=== PATIENT | female | born 1955 | race Caucasian/White ===

== ENCOUNTER 2021-12-11 05:41 | Inpatient (IN) | payer MEDICARE ==
[~2021-12-11] VITALS: Ht 160 cm; Wt 64.0 kg
[2021-12-11] VITALS (13 sets, daily range): BP systolic 80–115; BP diastolic 28–67
--- NOTE | 2021-12-11 05:55 | NUR ---
BIB 39 PT C/O SOB SATTING 85% ON R/A. TACHY 144, 95% ON NRB, SKIN WARM TO TOUCH. PT BREATHING UNLABORED LUNGS CLEAR BILATERALLY PLACED ON RAM PRESS OPERATOR AND PULSE OX. MD WAS AT BEDSIDE FOR EVAL.
--- NOTE | 2021-12-11 06:20 | NUR ---
DIGITAL TECHNICIAN AT PT'S BEDSIDE
--- NOTE | 2021-12-11 06:28 | NUR ---
WEAVER HAND AT PT'S BEDSIDE
[2021-12-11 06:38] LABS: BASOPHILS # (AUTO) 0.1 K/uL (0.0-0.2); BASOPHILS % (AUTO) 0.5 % (0.0-2.0); EOSINOPHILS % (AUTO) 0.1 % (0.0-6.0); HEMATOCRIT 32 % (33-45); HEMOGLOBIN 10.5 g/dL (11.5-14.8); LYMPHOCYTES # (AUTO) 0.9 K/uL (0.8-4.8); LYMPHOCYTES % (AUTO) 3.3 % (20.0-44.0); MEAN CORPUSCULAR HGB CONC 32 g/dl (31.0-36.0); MEAN CORPUSCULAR VOLUME 85 fL (82-100); MONOCYTES # (AUTO) 0.8 K/uL (0.1-1.30); NEUTROPHILS # (AUTO) 24.3 K/uL (1.8-8.9); NEUTROPHILS % (AUTO) 93.1 % (43.0-81.0); PLATELET COUNT (AUTO) 559 K/uL (150-450); WHITE BLOOD COUNT (AUTO) 26.1 K/uL (4.3-11.0)
[2021-12-11 07:06] LABS: CALCIUM, SERUM 10.5 mg/dL (8.5-10.1); CARBON DIOXIDE 28 mmol/L (21-32); CHLORIDE 97 mmol/L (98-107); CREATININE 0.7 mg/dL (0.6-1.3); GLUCOSE 128 mg/dL (74-106); SODIUM SERUM 130 mmol/L (136-145); UREA NITROGEN, BLOOD 8 mg/dL (7-18)
[2021-12-11] MEDS ORDERED: CT SWABBABLE VALVE TRANS SET 1 EA INFUS.SET MC ONE (07:39)
[2021-12-11] MEDS ORDERED: IOHEXOL-350 100 ML VIAL IV ONE (07:39)
[2021-12-11] MEDS ORDERED: IV NS 0.9% 250 ML IV ONE (07:39)
[2021-12-11] MEDS ORDERED: PIPERACILLIN /TAZOBACTAM 3.375 G in IV D5W 50 ML IV ONE (08:00)
[2021-12-11] MEDS ORDERED: VANCOMYCIN HCL 1 GM in IV D5W 260 ML IV ONE (08:00)
[2021-12-11] MEDS ORDERED: DOCU-141 PO (08:11)
[2021-12-11] MEDS ORDERED: CRAN3875 PO (08:11)
[2021-12-11] MEDS ORDERED: ACET-868 PO (08:11)
[2021-12-11] MEDS ORDERED: TORS20TA3 PO (08:11)
[2021-12-11] MEDS ORDERED: CITA20TA19 PO (08:11)
[2021-12-11] MEDS ORDERED: LOSA50TA39 PO (08:11)
[2021-12-11] MEDS ORDERED: ONDA4TAB5 PO (08:11)
[2021-12-11] MEDS ORDERED: POTA20TA83 PO (08:11)
[2021-12-11] MEDS ORDERED: AMIN30LI2 PO (08:11)
[2021-12-11] MEDS ORDERED: MULT-447 PO (08:11)
[2021-12-11] MEDS ORDERED: ACET650S11 RC (08:11)
[2021-12-11] MEDS ORDERED: ACET-2605 PO (08:11)
[2021-12-11] MEDS ORDERED: BISA10SU11 RC (08:11)
[2021-12-11] MEDS ORDERED: PANT40TA49 PO (08:11)
--- NOTE | 2021-12-11 08:35 | NUR ---
CALLED LAB FOR PENDING TROP AND LACTIC ACID RESULT.
--- NOTE | 2021-12-11 08:36 | NUR ---
COVID TEST COLLECTED AND SENT
--- NOTE | 2021-12-11 08:52 | NUR ---
URINE COLLECTED AND SENT
--- NOTE | 2021-12-11 08:53 | NUR ---
RESPIRATORY AT BEDSIDE
--- NOTE | 2021-12-11 09:08 | NUR ---
MOVE SHEET SUBMITTED AND CALLED FOR ICU BED.
--- NOTE | 2021-12-11 09:15 | NUR ---
[facility] CALLED BARKER OPERATOR PAGED.
[2021-12-11 09:27] LABS: BILIRUBIN,URINE NEGATIVE (NEGATIVE); COLOR,URINE YELLOW (YELLOW); LEUKOCYTE ESTERASE ,URINE NEGATIVE (NEGATIVE); NITRITE, URINE NEGATIVE (NEGATIVE); PH,URINE 6.5 (5.0-8.0); PROTEIN,URINE NEGATIVE (NEGATIVE); UGLUCOSE NEGATIVE (NEGATIVE)
[2021-12-11 09:43] LABS: BACTERIA,URINE None seen /HPF (None Seen); SQUAMOUS EPITHELIAL CELL,UR None Seen /HPF (None Seen)
[2021-12-11] MEDS ORDERED: ACETAMINOPHEN 325 MG TABLET PO PRN (10:00)
[2021-12-11] MEDS ORDERED: MAG HYDROX/AL HYDROX/SIMETH 30 ML UDC PO PRN (10:00)
[2021-12-11] MEDS ORDERED: Z GUARD REMEDY 4 OZ OINT TP PRN (10:00)
[2021-12-11] MEDS ORDERED: ONDANSETRON HCL/PF 4 MG/2 ML VIAL IVP PRN (10:00)
[2021-12-11] MEDS ORDERED: MAGNESIUM HYDROXIDE 30 ML UDC PO PRN (10:00)
--- NOTE | 2021-12-11 10:13 | NUR ---
GOT BED 254
--- NOTE | 2021-12-11 10:24 | NUR ---
IV ESTABLISHED R AC 20G. CONVERTED TO SALINE LOCK.
[2021-12-11] MEDS ORDERED: BISACODYL SUPP (10 MG) 10 MG/SUPP.RECT SUPP.RECT RC PRN (10:30)
--- NOTE | 2021-12-11 10:31 | NUR ---
REPORT GIVEN TO DERRICK FOR JENNIFER
--- NOTE | 2021-12-11 11:02 | NUR ---
PT ARRIVED IN ROOM 254 FROM ER VIA [facility], ACCOMPANIED BY DOM ORTEGA. PT IS ALERT OX2, COOPERATIVE. PT CURRENTLY ON NRB MASK AT 15L.
[2021-12-11] MEDS: IV NS 0.9% 1,000 ML IV PRN (12:23)
[2021-12-11] MEDS: ENOXAPARIN SODIUM 40 MG/0.4 ML DISP.SYRIN SQ SCH (12:54)
[2021-12-11] MEDS ORDERED: ZOSYN IVPB 3.375 G in IV D5W 50ml IV SCH (13:00)
[2021-12-11] MEDS: DOCUSATE SODIUM 100 MG CAPSULE PO SCH (16:18)
--- NOTE | 2021-12-11 19:20 | NUR ---
GYM TEACHER NOTE RECEIVED PATIENT IN BED RESTING ALERT ORIENTED X1-2 VERBALLY RESPONSIVE ON 5L OXYGEN VIA NASAL CANNULA O2:97% IV SITE IS ON LEFT AC AND RIGHT AC INTACT PATENT ON IV HYDRATION NS 75CC/HR.SAFETY MEASURE IMPLEMENT BED IN LOW POSITION AND LOCKED,CALL LIGHT WITHIN REACH HEAD OF THE BED ELEVATED CONTINUE TO MONITOR.
--- NOTE | 2021-12-11 19:30 | NUR ---
PT HAS BEEN SLEEPING ON AND OFF SINCE ADMISSION. PT WAS PUT ON 5L NASAL CANNULA AT 1600, SATTING >94%. NO SIGNIFICANT EVENTS SINCE ADMISSION. PT CHECKED ON HOURLY AND PRN BY NURSING STAFF.
[2021-12-11] MEDS: VANCOMYCIN HCL 0.75 GM in IV D5W 250 ML IV SCH (19:39)
[2021-12-11] MEDS: PIPERACILLIN /TAZOBACTAM 3.375 G in IV D5W 100 ML IV SCH (21:17)
[2021-12-12] VITALS (25 sets, daily range): BP systolic 81–124; BP diastolic 46–77
[2021-12-12] MEDS: IV NS 0.9% 1,000 ML IV PRN ×2 (02:01→17:53)
[2021-12-12] MEDS: PIPERACILLIN /TAZOBACTAM 3.375 G in IV D5W 100 ML IV SCH ×3 (04:50→22:18)
[2021-12-12 05:51] LABS: ALANINE AMINOTRANSFERASE < 6 U/L (12-78); ALKALINE PHOSPHATASE 55 U/L (46-116); ASPARTATE AMINOTRANSFERASE 2 U/L (15-37); BILIRUBIN,DIRECT 0.1 mg/dL (0.0-0.2); BILIRUBIN,TOTAL 0.4 mg/dL (0.2-1.0); CALCIUM, SERUM 6.1 mg/dL (8.5-10.1); CARBON DIOXIDE 17 mmol/L (21-32); CHLORIDE 114 mmol/L (98-107); CREATININE 0.4 mg/dL (0.6-1.3); GLUCOSE 62 mg/dL (74-106); MAGNESIUM 1.3 mg/dL (1.8-2.4); SODIUM SERUM 140 mmol/L (136-145); TOTAL IRON BINDING CAPACITY 60 ug/dl (250-450); TOTAL PROTEIN, SERUM 3.3 g/dL (6.4-8.2); UREA NITROGEN, BLOOD 6 mg/dL (7-18)
--- NOTE | 2021-12-12 06:00 | NUR ---
RN NOTE RECEIVED CRITICAL LAB RESULTS POTASSIUM 2.1 NOTIFIED GRADE TEACHER MARK ANTHONY WITH NEW ORDER KCL 40MEQ NOTED AND CARRIED OUT.
[2021-12-12 06:07] LABS: FERRITIN 358 ng/mL (8-388); THYROID STIMULATING HORMONE 1.976 uIU/mL (0.358-3.74)
[2021-12-12 06:09] LABS: ALBUMIN 0.9 g/dL (3.4-5.0); POTASSIUM 2.1 mmol/L (3.5-5.1)
[2021-12-12 06:30] LABS: IRON, SERUM 4 ug/dl (50-175)
[2021-12-12] MEDS: POTASSIUM CHLORIDE 10 MEQ/50 ML PREMIXED IVPB FOR PERIPHERAL LINE IV SCH ×4 (06:40→11:51)
--- NOTE | 2021-12-12 07:42 | NUR ---
RN NOTE PATIENT REMAINS ON ALERT ORIENTED X1-2 VERBALLY RESPONSIVE ON 5L OXYGEN VIA NASAL CANNULA,O2:97% IV NS RUNNING 75 CC/HR ALL DUE MEDS GIVEN MD ORDERED KEPT CLEAN AND DRY ALL THE TIME ENDORSES NEXT COMING SHIFT FOR CONTINUATION OF CARE.
--- NOTE | 2021-12-12 07:50 | NUR ---
RN OPENING NOTE RECEIVED PATIENT IN BED RESTING ALERT ORIENTED X1-2 VERBALLY RESPONSIVE ON 5L OXYGEN VIA NASAL CANNULA IV SITE IS ON LEFT AC AND RIGHT AC INTACT PATENT ON IV HYDRATION NS 75CC/HR. PATINT DOES NOT COMPLAINT OF PAIN OR SOB AT THIS TIME. SAFETY MEASURE IMPLEMENT BED IN LOW POSITION AND LOCKED,CALL LIGHT WITHIN REACH HEAD OF THE BED ELEVATED.
[2021-12-12] MEDS: VANCOMYCIN HCL 0.75 GM in IV D5W 250 ML IV SCH ×2 (08:35→21:18)
[2021-12-12] MEDS: DOCUSATE SODIUM 100 MG CAPSULE PO SCH ×2 (08:37→17:00)
[2021-12-12] MEDS: CITALOPRAM HYDROBROMIDE 20 MG TABLET PO SCH (08:37)
--- NOTE | 2021-12-12 08:49 | NUR ---
RN NOTE RECIEVED CRITICAL HGB 4.1. LAST DRAW WAS 10.5 ON . PATIENT HAS NO ACTIVE BLEEDING ORDERED RE DRAW.
[2021-12-12] MEDS ORDERED: Magnesium 1 GM/2 ML VIAL IV ONE (09:30)
[2021-12-12 09:51] LABS: BASOPHILS % (AUTO) 0.1 % (0.0-2.0); EOSINOPHILS % (AUTO) 0.1 % (0.0-6.0); HEMATOCRIT 26 % (33-45); HEMOGLOBIN 8.5 g/dL (11.5-14.8); LYMPHOCYTES # (AUTO) 1.8 K/uL (0.8-4.8); LYMPHOCYTES % (AUTO) 6.5 % (20.0-44.0); MEAN CORPUSCULAR HGB CONC 32 g/dl (31.0-36.0); MEAN CORPUSCULAR VOLUME 86 fL (82-100); MONOCYTES # (AUTO) 0.7 K/uL (0.1-1.30); MONOCYTES % (AUTO) 2.6 % (2.0-12.0); NEUTROPHILS # (AUTO) 25.2 K/uL (1.8-8.9); NEUTROPHILS % (AUTO) 90.7 % (43.0-81.0); PLATELET COUNT (AUTO) 442 K/uL (150-450); RED BLOOD CELL COUNT(AUTO) 3.06 MIL/uL (4.0-5.2); WHITE BLOOD COUNT (AUTO) 27.8 K/uL (4.3-11.0)
[2021-12-12] MEDS ORDERED: Calcium Gluconate 1GM/10ML 4.65 MEQ in IV D5W 50 ML IV ONE (10:00)
[2021-12-12] MEDS ORDERED: IOHEXOL-300 100 ML VIAL IV ONE (11:19)
[2021-12-12] MEDS ORDERED: CT SWABBABLE VALVE TRANS SET 1 EA INFUS.SET MC ONE (11:19)
[2021-12-12] MEDS ORDERED: IV NS 0.9% 250 ML IV ONE (11:19)
[2021-12-12] MEDS: Magnesium 1GM/D5W 100ML PREMIX 100 ML IV SCH ×4 (11:45→15:56)
[2021-12-12] MEDS ORDERED: POTASSIUM CHLORIDE 10 MEQ/50 ML PREMIXED IVPB FOR PERIPHERAL LINE IV SCH (12:00)
[2021-12-12] MEDS: ENOXAPARIN SODIUM 40 MG/0.4 ML DISP.SYRIN SQ SCH (12:00)
--- NOTE | 2021-12-12 12:04 | NUR ---
RN NOTE 5 BAGS OF POTASSIUM HAVE BEEN INFUSED 1200. NO REACTION.
[2021-12-12] MEDS: SOD FERRIC GLUC 125 MG in IV NS 0.9% 100 ML IV SCH (15:28)
[2021-12-12] MEDS ORDERED: Magnesium 1GM/D5W 100ML PREMIX 100 ML IV SCH (16:00)
--- NOTE | 2021-12-12 19:10 | NUR ---
RN CLOSING NOTE RECEIVED PATIENT IN BED RESTING ALERT ORIENTED X1-2 VERBALLY RESPONSIVE ON 3L OXYGEN VIA NASAL CANNULA IV SITE IS ON LEFT AC AND RIGHT AC INTACT PATENT ON IV HYDRATION NS 75CC/HR. PATINT DOES NOT COMPLAINT OF PAIN OR SOB AT THIS TIME. SAFETY MEASURE IMPLEMENT BED IN LOW POSITION AND LOCKED,CALL LIGHT WITHIN REACH HEAD OF THE BED ELEVATED. WILL ENDORSE TO NIGHT NURSE FOR JENNIFER
--- NOTE | 2021-12-12 19:35 | NUR ---
RN NOTE PT RECEIVED IN BED. PT IS ON 3L OF O2 VIA NC SHOWING NO S/SX OF RESP DISTRESS. BREATHING EVEN AND UNLABORED. PT IS A/OX1-2. ON BEDSIDE/FAN BALANCER SHOWING NSR. PT CURRENTLY NPO. IV ACCESS NOTED ON LEFT AND RIGHT AC #20. LINES FLUSHED, PATENT, AND INTACT. ALL SAFETY MEASURES IMPLEMENTED. HOB ELEVATED. CALL LIGHT WITHIN REACH. BED LOCKED AND IN LOWEST POSITION. SIDE RAILS UP. WILL CONTINUE TO MONITOR AND ASSESS FOR ANY CHANGES DURING SHIFT.
[2021-12-12 23:14] LABS: CALCIUM, SERUM 9.6 mg/dL (8.5-10.1); CREATININE 0.6 mg/dL (0.6-1.3); POTASSIUM 3.9 mmol/L (3.5-5.1)
[2021-12-13] VITALS (23 sets, daily range): BP systolic 100–132; BP diastolic 52–93
[2021-12-13 05:24] LABS: BASOPHILS % (AUTO) 0.1 % (0.0-2.0); HEMATOCRIT 26 % (33-45); HEMOGLOBIN 8.6 g/dL (11.5-14.8); LYMPHOCYTES # (AUTO) 1.2 K/uL (0.8-4.8); LYMPHOCYTES % (AUTO) 5.4 % (20.0-44.0); MEAN CORPUSCULAR HGB CONC 33 g/dl (31.0-36.0); MEAN CORPUSCULAR VOLUME 85 fL (82-100); MONOCYTES # (AUTO) 0.6 K/uL (0.1-1.30); MONOCYTES % (AUTO) 2.8 % (2.0-12.0); NEUTROPHILS # (AUTO) 20.8 K/uL (1.8-8.9); NEUTROPHILS % (AUTO) 91.7 % (43.0-81.0); PLATELET COUNT (AUTO) 423 K/uL (150-450); RED BLOOD CELL COUNT(AUTO) 3.07 MIL/uL (4.0-5.2); WHITE BLOOD COUNT (AUTO) 22.7 K/uL (4.3-11.0)
[2021-12-13] MEDS: PIPERACILLIN /TAZOBACTAM 3.375 G in IV D5W 100 ML IV SCH ×3 (05:35→21:15)
--- NOTE | 2021-12-13 06:45 | NUR ---
RN NOTE NO CHANGES IN PT CONDITION DURING SHIFT. PT IS ON 3L OF O2 VIA NC SHOWING NO S/SX OF RESP DISTRESS. BREATHING EVEN AND UNLABORED. ON BEDSIDE/MACHINE ROOM ENGINEER SHOWING NSR. PT CURRENTLY NPO. 0.9% RUNNING AT 75 CC/HR. ALL SAFETY MEASURES IMPLEMENTED. PT KEPT CLEAN AND COMFORTABLE. ALL DUE MEDS GIVEN ORDERED. HOB ELEVATED. CALL LIGHT WITHIN REACH. BED LOCKED AND IN LOWEST POSITION. SIDE RAILS UP. WILL ENDORSE TO MORNING SHIFT RN FOR JENNIFER.
[2021-12-13 07:07] LABS: IMMUNOGLOBULIN A, SERUM 338 mg/dL (87-352); IMMUNOGLOBULIN G, SERUM 929 mg/dL (586-1602); IMMUNOGLOBULIN M, SERUM 84 mg/dL (26-217)
--- NOTE | 2021-12-13 07:47 | NUR ---
RN OPENING NOTE RECEIVED PATIENT IN BED RESTING ALERT ORIENTED X1-2 VERBALLY RESPONSIVE ON 3L OXYGEN VIA NASAL CANNULA. BREATHING EVEN AND UNLABORED. NO SOB OR ANY ACUTE DISTRESS NOTED AT THE TIME. IV ACCESS ON LEFT AC AND RIGHT AC INTACT PATENT INFUSING NS AT 75CC/HR. NO SIGNS ON INFILTRATION NOTED. PATIENT DOES NOT COMPLAINT OF PAIN OR ANY DISCOMFORT AT THE TIME. SAFETY MEASURE IMPLEMENT BED IN LOW POSITION AND LOCKED,CALL LIGHT WITHIN REACH HEAD OF THE BED ELEVATED. WILL CONTINUE TO MONITOR PATIENT THROUGHOUT SHIFT.
[2021-12-13 07:52] LABS: CALCIUM, SERUM 9.3 mg/dL (8.5-10.1); CREATININE 0.5 mg/dL (0.6-1.3); POTASSIUM 3.3 mmol/L (3.5-5.1)
[2021-12-13] MEDS: IV NS 0.9% 1,000 ML IV PRN (08:08)
[2021-12-13] MEDS: CITALOPRAM HYDROBROMIDE 20 MG TABLET PO SCH (08:47)
[2021-12-13] MEDS: DOCUSATE SODIUM 100 MG CAPSULE PO SCH ×2 (08:47→17:00)
[2021-12-13] MEDS: POTASSIUM CL. PREMIX PERIPHER. 50 ML IV SCH ×2 (09:34→12:02)
--- NOTE | 2021-12-13 09:43 | NUR ---
RN NOTE SPOKE TO STANLEY BARRERA. PER STANLEY THE CASE IS STILL UNDER INVESTIGATION/PENDING AND SHE IS NOT ABLE TO GIVE CONSENT FOR PEG TUBE AND EGD.
--- NOTE | 2021-12-13 09:55 | NUR ---
RN NOTE PATIENT REFUSED TO SIGN CONSENT FOR PEG TUBE PLACEMENT, EXPLAINED RISKS VS BENEFITS. PATIENT STATES "PLS GIVE ME TIME TO THINK ABOUT IT."
[2021-12-13] MEDS ORDERED: VANCOMYCIN HCL 0.75 GM in IV D5W 250 ML IV SCH (10:00)
--- NOTE | 2021-12-13 10:45 | NUR ---
RN NOTE NOTED LEAKING ON LEFT AC IV ACCESS. MED VANCO SWITCH TO INFUSE ON IV ACCESS ON RIGHT AC INFUSING AT 250 ML/HR. VANCOMYCIN ONLY MED INFUSING CURRENTLY ON THE IV SITE. IV ACCESS PATENT AND INTACT. NO SIGNS OF INFILTRATION NOTED.
[2021-12-13] MEDS: ENOXAPARIN SODIUM 40 MG/0.4 ML DISP.SYRIN SQ SCH (11:14)
--- NOTE | 2021-12-13 12:29 | NUR ---
RN NOTE PATIENT AGREED AND SIGNED CONSENT FOR EGD, PEG PLACEMENT AND ANESTHESIA.
[2021-12-13 13:06] LABS: *SPE A/G RATIO 0.5 (0.7-1.7); *SPE ALPHA-1-GLOBULIN 0.4 g/dL (0.0-0.4); *SPE ALPHA-2-GLOBULIN 0.6 g/dL (0.4-1.0); *SPE BETA GLOBULIN 0.6 g/dL (0.7-1.3); *SPE M-SPIKE Not Observed g/dL (Not Observed)
[2021-12-13] MEDS: SOD FERRIC GLUC 125 MG in IV NS 0.9% 100 ML IV SCH (13:52)
--- NOTE | 2021-12-13 18:50 | NUR ---
RN CLOSING NOTE NO SIGNIFICANT CHANGES IN PATIENT CONDITION THROUGHOUT SHIFT. PATIENT IS ON 3LPM OF O2 VIA NC SHOWING NO SIGNS OF SOB OR ANY ACUTE DISTRESS NOTED. BREATHING EVEN AND UNLABORED. PATIENT REMAINS ON NPO. IV ACCESS ON JOEY MIDLINE INFUSING 0.9% NS AT 75 CC/HR. ALL DUE MEDS GIVEN ORDERED. KEPT PATIENT CLEAN, DRY AND COMFORTABLE. HOB ELEVATED. ALL SAFETY MEASURES IMPLEMENTED. CALL LIGHT WITHIN REACH. BED LOCKED AND IN LOWEST POSITION. SIDE RAILS UP. PATIENT SCHEDULE FOR PEG PLACEMENT TONIGHT. PRE-OP CHECKLIST COMPLETED AND PUT IN CHART. WILL ENDORSE TO WOOD DRILL OPERATOR RN FOR CONTINUITY OF CARE.
[2021-12-13] MEDS ORDERED: ANESTHESIA TRAY IN PYXIS 1 EA TRAY MC ONE (19:00)
[2021-12-13] MEDS ORDERED: FAMOTIDINE/PF INJ 20 MG/2 ML VIAL IV ONE (19:05)
--- NOTE | 2021-12-13 19:05 | NUR ---
DRILL OPERATOR PNEUMATIC BY OR STAFF NURSE FOR PEG PLACEMENT PT IS A/O X2 AWAKE ABLE TO TALK, ON 3L O2 VIA NC SPO2 96-97% NO SOB NOTED, TELE MONITOR READS SINUS TACHY 100'S HAVE JOEY ML PATENT AND FLUSHED, ON ROUTE TO OR
--- NOTE | 2021-12-13 19:33 | NUR ---
PT WAS SEND BACK TO UNIT BY OR NURSES, PEG PLACEMENT WAS NOT DONE PLEASE REFER TO OR NOTES, PT IS AWAKE ORIENTED NO SIGN OF SOB ON 3L O2 VIA NC
--- NOTE | 2021-12-13 19:40 | NUR ---
PT TRANSFER TO ROOM 308-1 VIA ACLS PROTOCOL, PT IS ALERT ORIENTED ABLE TO VERBALIZED NEEDS, TELE MONITOR READS SINUS TACHY 100'S, NO SOB NOTED, WITH ONGOING NS @ 75ML/HR INFUSING VIA JOEY ML, REPORT GIVEN TO MS ROYAL ORTEGA ON BEDSIDE FOR JENNIFER, BELONGINGS ALSO ENDORSE,
--- NOTE | 2021-12-13 20:00 | NUR ---
FOAM MACHINE OPERATOR NOTES PT RECEIVED IN BED A/0 X1-2 WITH PERIODS OF CONFUSION ABLE TO MAKE NEEDS KNOW. NO PAIN NO DISCOMFORT NOTED AT THIS TIME. PT ON 3L OF O2 SATURATION WELL. PT NOTED WITH IV ACCESS ON THE LAC#20 AND RAC #20G. AND JEOY ML. ORIENTED TO UNIT AND ROOM CALL LIGHT WITHIN REACH. TABLE WITHIN REACH. WILL CONTINUE TO MONITOR.
[2021-12-13] MEDS: VANCOMYCIN 1 GM in IV D5W 250 ML IV SCH (22:14)
[2021-12-14] VITALS (8 sets, daily range): BP systolic 119–147; BP diastolic 71–94
[2021-12-14] MEDS: PIPERACILLIN /TAZOBACTAM 3.375 G in IV D5W 100 ML IV SCH ×3 (04:25→21:23)
--- NOTE | 2021-12-14 06:36 | NUR ---
EXTENSION ASSOCIATE CLOSING NOTES PT IN BED WATCHING TV A/0 X1-2 WITH PERIODS OF CONFUSION ABLE TO MAKE NEEDS KNOW. NO PAIN NO DISCOMFORT NOTED AT THIS TIME. PT ON 3L OF O2 SATURATION WELL. PT NOTED WITH IV ACCESS ON THE LAC#20 .AND JOEY ML. PT BED ALARM ON BILATERAL SIDE RAILS UP FOR SAFETY. CALL LIGHT WITHIN REACH. TABLE WITHIN REACH. PT REMAINS NPO AT THIS TIME TO HAVE SWALLOW EVAL.
[2021-12-14 06:55] LABS: CREATININE 0.6 mg/dL (0.6-1.3); POTASSIUM 3.8 mmol/L (3.5-5.1)
[2021-12-14 07:12] LABS: BASOPHILS % (AUTO) 0.1 % (0.0-2.0); HEMATOCRIT 28 % (33-45); HEMOGLOBIN 9.1 g/dL (11.5-14.8); LYMPHOCYTES # (AUTO) 1.5 K/uL (0.8-4.8); LYMPHOCYTES % (AUTO) 5.1 % (20.0-44.0); MEAN CORPUSCULAR HGB CONC 32 g/dl (31.0-36.0); MEAN CORPUSCULAR VOLUME 87 fL (82-100); MONOCYTES % (AUTO) 3.4 % (2.0-12.0); NEUTROPHILS # (AUTO) 26.5 K/uL (1.8-8.9); NEUTROPHILS % (AUTO) 91.4 % (43.0-81.0); PLATELET COUNT (AUTO) 457 K/uL (150-450); RED BLOOD CELL COUNT(AUTO) 3.25 MIL/uL (4.0-5.2)
--- NOTE | 2021-12-14 07:30 | NUR ---
KNIFE MACHINE OPERATOR NOTES PT IN BED, AWAKE, ALERT, WITH PERIODS OF CONFUSION, ABLE TO FOLLOW DIRECTIONS, NO COMPLAINT OF PAIN, NOT IN DISTRESS, CALL LIGHT WITHIN REACH, BED ALARM ON AT ALL TIMES PT TRIES TO GET OOB UNASSISTED, KEPT WARM AND COMFORTABLE IN BED, IV FLUIDS INFUSING WELL.
[2021-12-14] MEDS ORDERED: VANCOMYCIN HCL 0.75 GM in IV D5W 250 ML IV SCH (08:00)
[2021-12-14] MEDS: DOCUSATE SODIUM 100 MG CAPSULE PO SCH ×2 (09:00→16:17)
[2021-12-14] MEDS: CITALOPRAM HYDROBROMIDE 20 MG TABLET PO SCH (09:00)
[2021-12-14] MEDS: VANCOMYCIN 1 GM in IV D5W 250 ML IV SCH ×2 (10:20→22:01)
[2021-12-14] MEDS: ENOXAPARIN SODIUM 40 MG/0.4 ML DISP.SYRIN SQ SCH (10:21)
[2021-12-14] MEDS ORDERED: SUCCINYLCHOLINE CHLORIDE 20 MG/ML VIAL IV ONE (13:40)
[2021-12-14] MEDS ORDERED: PROPOFOL 200 MG/20 ML VIAL IV ONE (13:40)
[2021-12-14] MEDS ORDERED: ONDANSETRON HCL/PF 4 MG/2 ML VIAL IVP ONE (13:40)
--- NOTE | 2021-12-14 13:40 | NUR ---
LAST SCOURER NOTES ATTEMPTED NGT INSERTION, UNABLE TO INSERT DUE TO PT UNABLE TO TOLERATE, DR. ARVIZU INFORMED, ORDER RECEIVED FOR PICC LINE PLACEMENT.
[2021-12-14] MEDS: SOD FERRIC GLUC 125 MG in IV NS 0.9% 100 ML IV SCH (14:30)
--- NOTE | 2021-12-14 18:15 | NUR ---
RESPIRATORY TECH NOTES PT IN BED, AWAKE, ALERT AND VERBALLY RESPONSIVE, WITH PERIODS OF CONFUSION AND BEING FORGETFUL, KEPT NPO, PICC LINE PLACEMENT DONE, STAT XRAY SHOWED "Right-sided PICC line terminates in the projection of the SVC - atrial junction", PER DR. ARVIZU, LINE SHOULD BE PULLED BACK FROM THE ATRIUM AND SHOULD END IN THE SVC, PICTURE OF THE CHEST XRAY SENT TO DR. ARVIZU AND SAID THAT PICC LINE IS OK TO USE, ORDER ALSO OBTAINED TO START PT ON TPN, ORDER NOTED. PT IN BED, RESTING, NO SIGN OF PAIN OR DISTRESS, ALL NEEDS ATTENDED, BED ALARM ON AT ALL TIMES.
[2021-12-14] MEDS ORDERED: TPN/PPN PER PHARMACY IV PRN (18:30)
[2021-12-14] MEDS ORDERED: TPN BAG #1 IV SCH (19:00)
--- NOTE | 2021-12-14 19:30 | NUR ---
BOARDINGHOUSE KEEPER OPENING NOTES RECEIVED PATIENT ON BED; AWAKE, ALERT AND ORIENTED X 1-2 WITH PERIODS OF CONFUSION. BREATHING IS EVEN AND UNLABORED. IN NO ACUTE DISTRESS. WITH OXYGEN INHALATION VIA NC AT 3LPM. ON TELEMETRY MONITORING WITH SR HR 98 BPM. WITH PICC LINE AT JOEY; DRY AND INTACT. WITH IV ACCESS OF NS 1L @ 75ML/HR AT RIGHT AC G2O. ABLE TO MAKE NEEDS KNOWN. SAFETY MEASURES IMPLEMENTED. CALL LIGHT AND TABLE WITHIN REACH. SIDE RAILS UP X 2. BED IS IN LOWEST LOCKED POSITION. WILL CONTINUE TO MONITOR.
--- NOTE | 2021-12-14 20:08 | NUR ---
PRODUCTION SAMPLER NOTES BS CHECKED 79 ML/DL. TPN CLINIMIX 1000 ML STARTED VIA INFUSION PUMP SET TO 40 ML/HR ORDERED.
[2021-12-14 20:17] LABS: HEMATOCRIT 26 % (33-45); HEMOGLOBIN 8.6 g/dL (11.5-14.8); LYMPHOCYTES # (AUTO) 1.7 K/uL (0.8-4.8); LYMPHOCYTES % (AUTO) 6.9 % (20.0-44.0); MEAN CORPUSCULAR HGB CONC 33 g/dl (31.0-36.0); MEAN CORPUSCULAR VOLUME 86 fL (82-100); MONOCYTES # (AUTO) 1.1 K/uL (0.1-1.30); MONOCYTES % (AUTO) 4.4 % (2.0-12.0); NEUTROPHILS # (AUTO) 21.4 K/uL (1.8-8.9); NEUTROPHILS % (AUTO) 88.7 % (43.0-81.0); PLATELET COUNT (AUTO) 455 K/uL (150-450); RED BLOOD CELL COUNT(AUTO) 3.06 MIL/uL (4.0-5.2); WHITE BLOOD COUNT (AUTO) 24.1 K/uL (4.3-11.0)
[2021-12-14 22:13] LABS: ALBUMIN 1.5 g/dL (3.4-5.0)
[2021-12-14 22:17] LABS: PREALBUMIN 3.8 MG/DL (18.0-35.7)
[2021-12-15] VITALS: BP 138/91
--- NOTE | 2021-12-15 00:15 | NUR ---
NET LEAD ARCHITECT NOTES BLOOD SUGAR CHECKED WITH RESULT OF 103 MG/DL. NO INSULIN COVERAGE GIVEN.
[2021-12-15] MEDS: BLOOD SUGAR DIAGNOSTIC 1 EACH STRIP IN SCH ×4 (01:18→17:40)
[2021-12-15 04:00] VITALS: BP 150/92
[2021-12-15] MEDS: PIPERACILLIN /TAZOBACTAM 3.375 G in IV D5W 100 ML IV SCH ×3 (04:44→20:45)
--- NOTE | 2021-12-15 06:30 | NUR ---
EXPELLER OPERATOR CLOSING NOTES PATIENT IS IN BED WATCHING TV, ALERT AND ORIENTED X 1-2 WITH PERIODS OF CONFUSION. IN NO ACUTE DISTRESS. DENIES ANY PAIN AT THIS TIME. WITH OXYGEN INHALATION VIA NASAL CANNULA. WITH PICC LINE AT JOEY WITH TPN INFUSING AT 40 ML/HR. WITH IV ACCESS AT RAC G20 OF NS AT 75 ML/HR. ABLE TO MAKE NEEDS KNOWN. SAFETY MEASURES MAINTAINED. CALL LIGHT AND TABLE WITHIN REACH. SIDE RAILS UP X 2. BED IS IN LOWEST LOCKED POSITION. WILL ENDORSED TO MORNING SHIFT FOR CONTINUITY OF CARE
[2021-12-15 06:39] LABS: HEMATOCRIT 26 % (33-45); HEMOGLOBIN 8.5 g/dL (11.5-14.8); LYMPHOCYTES # (AUTO) 1.4 K/uL (0.8-4.8); LYMPHOCYTES % (AUTO) 5.1 % (20.0-44.0); MEAN CORPUSCULAR HGB CONC 33 g/dl (31.0-36.0); MEAN CORPUSCULAR VOLUME 85 fL (82-100); MONOCYTES # (AUTO) 1.2 K/uL (0.1-1.30); MONOCYTES % (AUTO) 4.3 % (2.0-12.0); NEUTROPHILS # (AUTO) 24.5 K/uL (1.8-8.9); NEUTROPHILS % (AUTO) 90.6 % (43.0-81.0); PLATELET COUNT (AUTO) 451 K/uL (150-450); RED BLOOD CELL COUNT(AUTO) 3.04 MIL/uL (4.0-5.2)
[2021-12-15 06:52] LABS: CALCIUM, SERUM 10.8 mg/dL (8.5-10.1); CREATININE 0.7 mg/dL (0.6-1.3); PHOSPHORUS 2.8 mg/dL (2.5-4.9)
[2021-12-15 07:25] LABS: POTASSIUM 2.6 mmol/L (3.5-5.1)
--- NOTE | 2021-12-15 07:25 | NUR ---
RN NOTE Received critical value from Shawna from lab, potassium is 2.6. Dr. Coley notified.
[2021-12-15 07:34] LABS: CHOLESTEROL 67 mg/dL (<200); HDL CHOLESTEROL 27 mg/dL (40-60); LDL 30 mg/dL (0-99); TRIGLYCERIDES 52 mg/dL (30-150)
--- NOTE | 2021-12-15 07:40 | NUR ---
FARMWORKER MACHINE OPENING NOTE Patient in bed, asleep. A/O x 1-2. On O2 at 3LPM via NC, breathing evenly and unlabored. No SOB or s/s of distress noted. IV access on JOEY PICC line infusing TPN at 40 ml/hr and RAC#20G to infuse NS at 75 ml/hr, currently running Zosyn at 25 ml/hr. Safety precautions in place: bed in low, locked position; siderails up x 2; call light within reach. Will continue to monitor.
[2021-12-15 08:00] VITALS: BP 142/77
[2021-12-15] MEDS: DOCUSATE SODIUM 100 MG CAPSULE PO SCH ×2 (09:00→17:00)
[2021-12-15] MEDS: CITALOPRAM HYDROBROMIDE 20 MG TABLET PO SCH (09:00)
[2021-12-15] MEDS: POTASSIUM CL. PREMIX PERIPHER. 50 ML IV SCH ×4 (09:30→12:28)
[2021-12-15] MEDS: VANCOMYCIN 1 GM in IV D5W 250 ML IV SCH ×2 (10:02→22:17)
[2021-12-15] MEDS ORDERED: POTASSIUM CL. PREMIX PERIPHER. 50 ML IV SCH (11:00)
[2021-12-15] MEDS: ENOXAPARIN SODIUM 40 MG/0.4 ML DISP.SYRIN SQ SCH (11:38)
[2021-12-15 12:00] VITALS: BP 153/89
[2021-12-15] MEDS ORDERED: PAMIDRONATE 90 MG in IV NS 0.9% 500 ML IV ONE (13:00)
[2021-12-15] MEDS: SOD FERRIC GLUC 125 MG in IV NS 0.9% 100 ML IV SCH (14:53)
[2021-12-15 16:00] VITALS: BP 154/91
[2021-12-15] MEDS ORDERED: TPN BAG #2 IV SCH ×4 (19:00)
--- NOTE | 2021-12-15 19:12 | NUR ---
COAT AGENTCORPORATE EVENT PLANNER NOTE Patient in bed, asleep. A/O x 1-2, able to make needs known. On O2 at 3LPM via NC, breathing evenly and unlabored. No SOB or s/s of distress noted. IV access on JOEY PICC line infusing TPN at 40 ml/hr and RAC#20G currently running Zosyn at 25 ml/hr and Pamidronate at 100 ml/hr. All needs attended to. Due IV meds given. Om tele monitoring showing SR, HR 94. Safety precautions maintained: bed in low, locked position; siderails up x 2; call light within reach. Will endorse to maintenance technician 3rd shift nurse for JENNIFER. Addendum: 12/15/21 at 1914 by MYKE HOPKINS RN CORRECTION: COAT AGENT CLOSING NOTE
--- NOTE | 2021-12-15 19:25 | NUR ---
SPEECH AND LANGUAGE TUTOR OPENING NOTES RECEIVED PATIENT ON BED AWAKE, ALERT AND ORIENTED X 1-2. WITH PERIODS OF CONFUSION. ON OXYGEN INHALATION VIA NASAL CANNULA AT 3LPM, WELL TOLERATED. BREATHING IS EVEN AND NONLABORED. ABLE TO MAKE NEEDS KNOWN. DENIES ANY PAIN OF THIS TIME. WITH PICC LINE AT RIGHT UPPER ARM INFUSING WELL WITH TPN RUNNING AT 40ML/HR. WITH IV ACCESS AT RIGHT ANTECUBITAL G20 INFUSING WELL WITH NS 1L RUNNING AT 75ML/HR. SAFETY MEASURES IMPLEMENTED; CALL LIGHT WITHIN REACH; SIDE RAILS UP X 2, BED IS ON LOWEST LOCKED POSITION. WILL CONTINUE TO MONITOR.
--- NOTE | 2021-12-15 19:41 | NUR ---
STRANDING MACHINE OPERATOR HELPER NOTES STARTED TPN CLINIMIX WITH ADDITIVES 1L VIA INFUSION PUMP ATTACHED TO PICC LINE RIGHT UPPER ARM REGULATED AT 40 ML/HR ORDERED.
[2021-12-15 20:00] VITALS: BP 153/96
[2021-12-16] VITALS: BP 145/87
[2021-12-16] MEDS: BLOOD SUGAR DIAGNOSTIC 1 EACH STRIP IN SCH ×5 (00:21→23:53)
[2021-12-16 04:00] VITALS: BP 145/93
[2021-12-16] MEDS: PIPERACILLIN /TAZOBACTAM 3.375 G in IV D5W 100 ML IV SCH ×3 (05:06→23:11)
[2021-12-16 06:42] LABS: EOSINOPHILS % (AUTO) 0.1 % (0.0-6.0); HEMATOCRIT 27 % (33-45); HEMOGLOBIN 8.6 g/dL (11.5-14.8); LYMPHOCYTES # (AUTO) 1.7 K/uL (0.8-4.8); LYMPHOCYTES % (AUTO) 6.9 % (20.0-44.0); MEAN CORPUSCULAR HGB CONC 32 g/dl (31.0-36.0); MEAN CORPUSCULAR VOLUME 87 fL (82-100); MONOCYTES # (AUTO) 1.1 K/uL (0.1-1.30); MONOCYTES % (AUTO) 4.4 % (2.0-12.0); NEUTROPHILS # (AUTO) 21.3 K/uL (1.8-8.9); NEUTROPHILS % (AUTO) 88.6 % (43.0-81.0); PLATELET COUNT (AUTO) 410 K/uL (150-450); RED BLOOD CELL COUNT(AUTO) 3.08 MIL/uL (4.0-5.2); WHITE BLOOD COUNT (AUTO) 24.1 K/uL (4.3-11.0)
[2021-12-16 06:54] LABS: CALCIUM, SERUM 11.3 mg/dL (8.5-10.1); CREATININE 0.7 mg/dL (0.6-1.3); PHOSPHORUS 2.4 mg/dL (2.5-4.9)
[2021-12-16 07:01] LABS: POTASSIUM 2.7 mmol/L (3.5-5.1)
--- NOTE | 2021-12-16 07:28 | NUR ---
CAR REPAIRER CLOSING NOTES PATIENT IS IN BED ALERT AND ORIENTED X 1-2 WITH PERIODS OF CONFUSION. IN NO ACUTE DISTRESS. WITH OXYGEN INHALATION VIA NASAL CANNULA. WITH PICC LINE AT JOEY WITH TPN INFUSING AT 40 ML/HR. WITH IV ACCESS AT RAC G20 OF NS AT 75 ML/HR. ABLE TO MAKE NEEDS KNOWN. SAFETY MEASURES MAINTAINED. CALL LIGHT AND TABLE WITHIN REACH. SIDE RAILS UP X 2. BED IS IN LOWEST LOCKED POSITION. WILL ENDORSED TO MORNING SHIFT FOR CONTINUITY OF CARE
--- NOTE | 2021-12-16 07:50 | NUR ---
MASTER MACHINIST NOTES PT IN BED, AWAKE, ALERT AND VERBALLY RESPONSIVE, STATED SHE IS FEELING BETTER TODAY, TPN INFUSING WELL, NOT IN DISTRESS, ON O2 AT 3LPM VIA N/C, O2 SAT OF96%, SEEN BY DR. LUH MD INFORMED OF CURRENT POTASSIUM LEVEL OF 2.7, KEPT PT COMFORTABLE.
[2021-12-16 08:37] VITALS: BP 135/75
[2021-12-16] MEDS: DOCUSATE SODIUM 100 MG CAPSULE PO SCH ×2 (08:43→16:48)
[2021-12-16] MEDS: CITALOPRAM HYDROBROMIDE 20 MG TABLET PO SCH (08:43)
--- NOTE | 2021-12-16 09:12 | NUR ---
SPORTS MEDIA NOTES SEEN BY DR. TEENA MD AWARE OF LATEST CXR RESULT, ORDERED TO GIVE POTASSIUM IV 60MEQ AND TO RECHECK POTASSIUM LEVEL 1 HOUR AFTER THE LAST BAG, PER MD, HOLD IV FLUIDS FOR NOW.
[2021-12-16] MEDS: POTASSIUM CL. PREMIX PERIPHER. 50 ML IV SCH ×6 (09:25→23:21)
[2021-12-16] MEDS: VANCOMYCIN 1 GM in IV D5W 250 ML IV SCH ×2 (10:26→22:01)
[2021-12-16] MEDS: ENOXAPARIN SODIUM 40 MG/0.4 ML DISP.SYRIN SQ SCH (11:28)
[2021-12-16] MEDS ORDERED: FUROSEMIDE 40 MG/4 ML VIAL IV ONE (11:30)
[2021-12-16] MEDS ORDERED: FAT EMULSION 20% 500 ML in PREMIX 1 EA IV SCH (12:00)
[2021-12-16 12:42] VITALS: BP 159/106
[2021-12-16] MEDS ORDERED: ALTEPLASE CATHFLO 2 MG/VIAL XX ONE (13:30)
--- NOTE | 2021-12-16 15:55 | NUR ---
HR ANALYST NOTES ACTIVASE GIVEN BY COURT COMMISSIONER DELIA TO 2 WHITE LUMENS OF PICC FOR DECLOTTING, WILL WAIT 30 MIN TO CHECK FOR BLOOD RETURN, PHARMACY MADE AWARE THAT TPN IS ON HOLD FOR NOW WHILE PICC LINE IS BEING DECLOTTED.
[2021-12-16 16:00] VITALS: BP 119/77
--- NOTE | 2021-12-16 16:25 | NUR ---
HEREDITARY CANCER PROGRAM COORDINATOR NOTES CHECKED PICC LINE FOR BLOOD RETURN, NO BLOOD RETURN NOTED, WILL WAIT FOR AN ADDITIONAL 1 HOUR.
[2021-12-16] MEDS: SOD FERRIC GLUC 125 MG in IV NS 0.9% 100 ML IV SCH (16:33)
--- NOTE | 2021-12-16 17:25 | NUR ---
TONGUE PRESSER NOTES CHECKED PICC LINE FOR BLOOD RETURN, STILL NONE NOTED, INFORMED NURSING SHAKE MAKER FOR PICC LINE NURSE TO CHECK OR CHANGE PICC LINE, TPN ON HOLD FOR NOW, DR. ARVIZU INFORMED.
[2021-12-16] MEDS: POTASSIUM PHOSPHATE MM 7.5 MMOL in IV NS 0.9% 100 ML IV SCH ×2 (17:45→22:26)
[2021-12-16] MEDS ORDERED: TPN BAG #3 IV SCH ×2 (19:00)
--- NOTE | 2021-12-16 19:10 | NUR ---
LABOR RELATIONS DIRECTOR NOTES PT IN BED, AWAKE, VERBALLY RESPONSIVE, NOT IN DISTRESS, PICC LINE NURSE RYLIE FRAUD ANALYST AT BEDSIDE TO CHANGE PICC LINE, TPN CURRENTLY ON HOLD UNTIL PICC LINE IS FUNCTIONAL, F/C DRAINING WELL WITH CLEAR, YELLOW URINE, ORDERS RECEIVED FOR EGD WITH PEG PLACEMENT/ SURGICAL PLACEMENT OF GT FOR TOMORROW, PT UNABLE TO GIVE CONSENT AT THIS TIME DUE TO EPISODES OF CONFUSION, 2 MD'S NEED TO SIGN CONSENTS, DR. ARVIZU INFORMED, ENDORSED TO MANUFACTURING APPLICATIONS ENGINEER JORDAN PAIGE FOR CONTINUITY OF MONITORING AND CARE.
--- NOTE | 2021-12-16 19:36 | NUR ---
OCCUPATIONAL THERAPY SUPERVISOR NOTES PT IN BED, AWAKE, ALERT AND VERBALLY RESPONSIVE, PT CURRENTLY HAVING PICC LINE REINSERTED AT BEDSIDE. NOT IN DISTRESS, ON O2 AT 3LPM VIA N/C, O2 SAT OF96%. WILL CONTINUE TO MONITOR.
--- NOTE | 2021-12-16 20:35 | NUR ---
RESIN COATER NOTES PICC LINE INSERTED ON THE LEFT AC. WILL ORDER CX TO CONFIRM PLACEMENT.. PT TOLERATED PROCEDURE WELL. WILL CONTINUE TO MONITOR.
--- NOTE | 2021-12-16 23:37 | NUR ---
BOWLING BALL MOLDER NOTES FABIOLA DRAWN AT 10:30 PM
[2021-12-17 00:34] VITALS: BP 114/74
[2021-12-17] MEDS: POTASSIUM CL. PREMIX PERIPHER. 50 ML IV SCH ×2 (01:30→03:00)
[2021-12-17] MEDS: PIPERACILLIN /TAZOBACTAM 3.375 G in IV D5W 100 ML IV SCH (05:02)
[2021-12-17 05:09] VITALS: BP 105/70
[2021-12-17] MEDS: BLOOD SUGAR DIAGNOSTIC 1 EACH STRIP IN SCH ×3 (05:47→17:07)
[2021-12-17 06:47] LABS: HEMATOCRIT 31 % (33-45); HEMOGLOBIN 9.7 g/dL (11.5-14.8); LYMPHOCYTES % (AUTO) 4.2 % (20.0-44.0); MEAN CORPUSCULAR HGB CONC 31 g/dl (31.0-36.0); MEAN CORPUSCULAR VOLUME 87 fL (82-100); MONOCYTES # (AUTO) 1.8 K/uL (0.1-1.30); MONOCYTES % (AUTO) 3.8 % (2.0-12.0); NEUTROPHILS # (AUTO) 44.4 K/uL (1.8-8.9); PLATELET COUNT (AUTO) 362 K/uL (150-450); RED BLOOD CELL COUNT(AUTO) 3.54 MIL/uL (4.0-5.2)
--- NOTE | 2021-12-17 06:49 | NUR ---
FOOD GENERAL MANAGER NOTES PT IN BED, AWAKE, VERBALLY RESPONSIVE, NOT IN DISTRESS,A/O X1-2 WITH EPISODES OF CONFUSION F/C DRAINING WELL WITH CLEAR, YELLOW URINE, ORDERS RECEIVED FOR EGD WITH PEG PLACEMENT/ SURGICAL PLACEMENT OF GT FOR TODAY, PT UNABLE TO GIVE CONSENT AT THIS TIME DUE TO EPISODES OF CONFUSION. ALL DUE MEDS GIVEN AND TOLERATED WELL. PT WITH DELANEY PICC, LFA 22G, R HAND 20G ALL PATENT AND FLUSHING WELL. WILL ENDORSE CRAE TO [place]AMP[place]A SHIFT NURSE.
[2021-12-17 07:02] LABS: CALCIUM, SERUM 11.1 mg/dL (8.5-10.1); MAGNESIUM 1.6 mg/dL (1.8-2.4); PHOSPHORUS 4.6 mg/dL (2.5-4.9)
[2021-12-17 07:18] LABS: WHITE BLOOD COUNT (AUTO) 48.3 K/uL (4.3-11.0)
--- NOTE | 2021-12-17 07:19 | NUR ---
BUSINESS BANKING MANAGER NOTES RECEIVED CRITICAL LAB FOR WBC WILL ENDORSE TO SHANTELLE DAY SHIFT NURSE.
[2021-12-17] MEDS ORDERED: SUCCINYLCHOLINE CHLORIDE 20 MG/ML VIAL ONE (07:56)
[2021-12-17] MEDS ORDERED: FAMOTIDINE/PF INJ 20 MG/2 ML VIAL IV ONE (07:56)
[2021-12-17 08:00] VITALS: BP 138/70
--- NOTE | 2021-12-17 08:00 | NUR ---
RN OPENING NOTE PATIENT RECEIVED IN BED, AO x 1, ABLE TO RESPONDS PHYSICAL STIMULI. IN NO ACUTE DISTRESS NOTED. RESPIRATORY EVEN AND UNLABORED ON OXYGEN AT 4Ls. SKIN IS WARM TO TOUCH, KEEP CLEAN/DRY, INTACT IV SITE. KEPT ELEVATED HOB FOR ENSURE AIRWAY AND ASPIRATION PRECAUTION, ALSO LOWEST POSITION OF THE BED, COVERED S/R UP X 3 FOR SAFETY. ALL SAFETY PRECAUTION APPLIED. CALL LIGHT WITHIN REACH, WILL CONTINUE TO MONITOR.
[2021-12-17 08:13] LABS: BAND % (MANUAL) 2 % (0.0-5.0); LYMPHOCYTES % (MANUAL) 6 % (16-48); MONOCYTES % (MANUAL) 4 % (0-11.0); NEUTROPHILS % (MANUAL) 88 (42-76)
[2021-12-17] MEDS ORDERED: ANESTHESIA TRAY IN PYXIS 1 EA TRAY MC ONE (08:17)
[2021-12-17 08:31] LABS: CREATININE 1.3 mg/dL (0.6-1.3); POTASSIUM 3.7 mmol/L (3.5-5.1)
[2021-12-17] MEDS: CITALOPRAM HYDROBROMIDE 20 MG TABLET PO SCH (09:00)
[2021-12-17] MEDS: DOCUSATE SODIUM 100 MG CAPSULE PO SCH ×2 (09:00→16:31)
[2021-12-17] MEDS: VANCOMYCIN 1 GM in IV D5W 250 ML IV SCH (09:32)
--- NOTE | 2021-12-17 09:32 | NUR ---
PATIENT VANCO LEVEL WAS 31 IN THIS MORNING, WILL HOLD VANCOMYCIN.
[2021-12-17 09:51] LABS: ABG BASE EXCESS -0.5 mmol/L; ABG OXYGEN SATURATION 95.6 % (92.0-98.5); ABG PCO2 31.6 mmHg (35.0-45.0); ABG PH 7.471 (7.350-7.450); ABG PO2 80.4 mmHg (75.0-100.0); AaDO2 139.6 mmHg; COHb 0.2 % (0.5-1.5); MetHb 0.1 % (0.0-1.5); O2Hb 95.3 % (94.0-97.0); SITE, ABG Right Brachial
[2021-12-17] MEDS: Magnesium 1GM/D5W 100ML PREMIX 100 ML IV SCH ×2 (10:49→11:58)
[2021-12-17] MEDS ORDERED: TPN BAG #4 IV SCH ×4 (11:40)
[2021-12-17] MEDS: ENOXAPARIN SODIUM 40 MG/0.4 ML DISP.SYRIN SQ SCH (11:59)
[2021-12-17] MEDS ORDERED: VANCOMYCIN 1 GM in IV D5W 250 ML IV PRN (13:00)
[2021-12-17] MEDS: MEROPENEM 1 G in IV NS 0.9% 100 ML IV SCH (13:01)
[2021-12-17] MEDS: FLUCONAZOLE IN NS 100 MG in PREMIX 1 EA IV SCH ×2 (13:02)
[2021-12-17 16:00] VITALS: BP 123/60
--- NOTE | 2021-12-17 18:45 | NUR ---
RN CLOSE NOTE PATIENT IN BED, IN NO ACUTE DISTRESS OBSERVED. RESPIRATION EVEN AND UNLABORED ON OXYGEN AT 4Ls. SKIN IS WARM TO TOUCH KEEP CLEAN//DRY, INTACT IV SITE. RIVAS CATH CONNECTING TO URINE BAG. KEPT ELEVATED HOB FOR ENSURE AIRWAY AND ASPIRATION PRECAUTION. ALSO LOWEST POSITION OF THE BED FOR SAFETY. CALL LIGHT WITHIN REACH, WILL CONTINUE TO MONITOR.
--- NOTE | 2021-12-17 19:30 | NUR ---
MANAGER OF SOFTWARE NOTES RECEIVED ON BED A/O X1,OPEN EYES,CALM, BREATHING NON LABORED,AUDIBLE CRACKLES NOTED,CONGESTED,HOB ELEVATED,MAIN IVF WAS TURN OFF, ON TPN WITH MVI,INFUSING AT 60ML/HR RATE ON LEFT UPPER ARM PICC LINE,IVF NS AT 50ML/HR RATE INFUSING ON RIGHT HAND SALINE LOCK #22, VIA IV PIMP.WITH RIVAS CATH IN PLACE DRAINING SLIGHTLY CLOUDY URINE OUTPUT, SCANTY IN AMOUNT.NOT IN ANY FORM OF DISTRESS.WILL CONTINUE TO MONITOR STATUS.
[2021-12-17 20:00] VITALS: BP 124/87
--- NOTE | 2021-12-17 22:00 | NUR ---
DRESSAGE INSTRUCTOR NOTES NOTED CHANGED IN PATIENT BREATHING STATUS,ICU NURSE WAS CALLED TO EVALUATE PATIENT,MADE AWARE OF DIAGNOSIS,PATIENT HISTORY,PROCEDURES THAT WAS DONE AND NEEDS TO BE DONE.WITH ORDER TO DO ABG, EKG,ST ON TELE MONITOR 108.RT MADE AWARE THAT PATIENT HAS ESOPHAGEAL CANCER,THAT HE WANTS TO SUCTION PATIENT NASALLY. SUCTIONING DONE WITHOUT DIFFICULTY AND RT SAID HE GOT A LOT OF MUCUS,CRACKLES WAS IMPROVED. OPEN EYES AND RESPOND WHEN NAME WAS CALLED.BLOOD SUGAR CHECKED 138.
[2021-12-17 22:15] LABS: CALCIUM, SERUM 10.8 mg/dL (8.5-10.1); CREATININE 1.8 mg/dL (0.6-1.3); MAGNESIUM 2.3 mg/dL (1.8-2.4); PHOSPHORUS 4.5 mg/dL (2.5-4.9); POTASSIUM 3.6 mmol/L (3.5-5.1)
--- NOTE | 2021-12-17 22:23 | NUR ---
RN PSYCH NOTES STAT ABG WAS DRAWN BY RT AWAITING FOR THE RESULT.
[2021-12-17 22:54] LABS: ABG BASE EXCESS -5.2 mmol/L; ABG PCO2 71.2 mmHg (35.0-45.0); ABG PH 7.153 (7.350-7.450); ABG PO2 76.8 mmHg (75.0-100.0); COHb 0.3 % (0.5-1.5); MetHb 0.4 % (0.0-1.5); O2Hb 89.8 % (94.0-97.0); SITE, ABG Left Radial; VENT MODE, BG 4L Nsal Cannula
--- NOTE | 2021-12-17 23:00 | NUR ---
AADC PLANS STAFF OFFICER NOTES SUDDEN CHANGE IN PATIENT BREATHING STATUS,RAPID RESPONSE WAS CALLED,ABG RESULT CAME UP TO BE ABNORMAL.
--- NOTE | 2021-12-17 23:15 | NUR ---
FATBACK TRIMMER NOTES SPOKE TO DR ISABEL,MADE AWARE ON PATIENT ABG RESULT,WITH ORDER TO TRANSFER PATIENT TO ICU TO PUT PATIENT ON BIPAP,NOTED AND CARRIED OUT.
--- NOTE | 2021-12-17 23:23 | NUR ---
DEBURRER MACHINE NOTES PATIENT WAS TRANSFERRED TO ICU BY BED,ACCOMPANIED BY RT AND NURSE ASSIGNED,REPORT GIVEN TO TO REBECCAICU NURSE.
--- NOTE | 2021-12-17 23:24 | NUR ---
RECEIVED PT FROM 3W VIA NC 6L SPO2 81% WILL PUT ON BIPAP PER MD ORDER NOTED SHALLOW BREATHING WITH USE OF ACCESSORY MUSCLES, PT WAS ASSISTED BY RNS AND RT'S, HOOKED TO TELE MONITOR WITH READING AFIB 130'S V/S CHECKED AND RECORDED, PT HAVE DELANEY PICC PATENT AND FLUSHED WITH TPN @ 60ML/HR R ARM SWELLING WITH WEAPING NOTED, PT IS VERY LETHARGIC NOT ANSWERING TO ANY QUESTION SOMETIME OPEN EYES INVOLUNTARILY, PT HAVE RIVAS CATHETER NO URINE OUTPUT SINCE THIS AM PER MS SHADI RN, PUT COMFORTABLY ON BED, BED ON LOWEST POSITION AND LOCKED SIDERAILS UP X2 WILL CONT TO MONITOR
[2021-12-17 23:30] VITALS: BP 92/44
--- NOTE | 2021-12-17 23:56 | NUR ---
RT NOTE CALLED TO PT ROOM FOR STAT ABG. ABG DONE AND RESULTS RELAYED TO MD. BODY BUILDER CALLED AND PT PLACED ON BIPAP SETTINGS 18/5, R 18, 100% PER MD.
[2021-12-18] VITALS (42 sets, daily range): BP systolic 77–149; BP diastolic 46–93
[2021-12-18] MEDS: MEROPENEM 1 G in IV NS 0.9% 100 ML IV SCH ×3 (00:07→23:24)
[2021-12-18] MEDS: BLOOD SUGAR DIAGNOSTIC 1 EACH STRIP IN SCH ×5 (00:18→23:22)
[2021-12-18 01:00] LABS: ABG BASE EXCESS -4.4 mmol/L; ABG OXYGEN SATURATION 97.6 % (92.0-98.5); ABG PH 7.196 (7.350-7.450); ABG PO2 120.7 mmHg (75.0-100.0); AaDO2 528.3 mmHg; COHb 0.3 % (0.5-1.5); MetHb 0.4 % (0.0-1.5); O2Hb 96.9 % (94.0-97.0); SITE, ABG Left Radial
--- NOTE | 2021-12-18 01:10 | NUR ---
RELAYED TO DR ISABEL THE LATEST ABG RESULTS AND HE TALK TO RT WITH BIPAP SETTING CHANGES WILL CONT TO MONITOR THE PT
--- NOTE | 2021-12-18 01:15 | NUR ---
RT NOTE SPOKE TO DR. ISABEL ABOUT ABG RESULTS. CHANGED BIPAP SETTINGS TO 22/5 PER MD ORDER. RN REBECCA ARGUETA.
--- NOTE | 2021-12-18 03:00 | NUR ---
CALLED DR ISABEL AND REPORTED PT LOW BP OF 85/49 WITH ORDER TO INCREASE NS TO 75ML/HR AND KEEP MAP >65 NOTED AND CARRIED OUT
[2021-12-18] MEDS: IV NS 0.9% 1,000 ML IV PRN ×2 (03:24→16:24)
--- NOTE | 2021-12-18 03:40 | NUR ---
REPORTED TO DR ISABEL THAT PT BP IS LOW WITH BP OF 77/46 AND HR IS 130'S WIHT AFIB RHYTHM WITH ORDER TO GIVE AMIODARONE 150 IV BOLUS X1 NOW THEN MAY GIVE NEOSYNEPHRINE TO TITRATE PER PROTOCOL TO MAINTAIN MAP >65
[2021-12-18] MEDS ORDERED: AMIODARONE 150 MG/3 ML VIAL IV ONE (03:53)
[2021-12-18] MEDS ORDERED: AMIODARONE 150 MG in IV D5W 100 ML IV ONE (04:00)
[2021-12-18] MEDS ORDERED: TPN IV ONE (04:30)
[2021-12-18] MEDS ORDERED: D10 IV ONE (04:30)
[2021-12-18] MEDS ORDERED: TPN AMINO ACIDS IV ONE (04:30)
[2021-12-18 05:14] LABS: BASOPHILS % (AUTO) 0.1 % (0.0-2.0); HEMATOCRIT 29 % (33-45); HEMOGLOBIN 8.8 g/dL (11.5-14.8); LYMPHOCYTES # (AUTO) 1.9 K/uL (0.8-4.8); LYMPHOCYTES % (AUTO) 3.4 % (20.0-44.0); MEAN CORPUSCULAR HGB CONC 31 g/dl (31.0-36.0); MEAN CORPUSCULAR VOLUME 89 fL (82-100); MONOCYTES % (AUTO) 1.8 % (2.0-12.0); NEUTROPHILS # (AUTO) 52.3 K/uL (1.8-8.9); NEUTROPHILS % (AUTO) 94.7 % (43.0-81.0); PLATELET COUNT (AUTO) 301 K/uL (150-450); RED BLOOD CELL COUNT(AUTO) 3.22 MIL/uL (4.0-5.2)
[2021-12-18 05:38] LABS: CALCIUM, SERUM 10.3 mg/dL (8.5-10.1); CREATININE 2.1 mg/dL (0.6-1.3); MAGNESIUM 2.5 mg/dL (1.8-2.4); PHOSPHORUS 4.3 mg/dL (2.5-4.9); POTASSIUM 3.5 mmol/L (3.5-5.1)
[2021-12-18 05:56] LABS: WHITE BLOOD COUNT (AUTO) 55.2 K/uL (4.3-11.0)
[2021-12-18 07:44] LABS: ABG BASE EXCESS -3.5 mmol/L; ABG OXYGEN SATURATION 99.2 % (92.0-98.5); ABG PCO2 34.9 mmHg (35.0-45.0); ABG PH 7.394 (7.350-7.450); ABG PO2 164.6 mmHg (75.0-100.0); AaDO2 369.2 mmHg; COHb 0.3 % (0.5-1.5); MetHb 0.2 % (0.0-1.5); O2Hb 98.7 % (94.0-97.0); SITE, ABG Left Radial
[2021-12-18 07:57] LABS: BAND % (MANUAL) 5 % (0.0-5.0); LYMPHOCYTES % (MANUAL) 1 % (16-48); MONOCYTES % (MANUAL) 1 % (0-11.0); NEUTROPHILS % (MANUAL) 93 (42-76)
[2021-12-18] MEDS: CITALOPRAM HYDROBROMIDE 20 MG TABLET PO SCH (08:45)
[2021-12-18] MEDS: DOCUSATE SODIUM 100 MG CAPSULE PO SCH ×2 (08:45→17:00)
[2021-12-18] MEDS: FUROSEMIDE 20 MG/2 ML VIAL IV SCH ×2 (09:29→18:21)
[2021-12-18] MEDS: ENOXAPARIN SODIUM 40 MG/0.4 ML DISP.SYRIN SQ SCH (12:14)
[2021-12-18] MEDS: FLUCONAZOLE IN NS 100 MG in PREMIX 1 EA IV SCH ×2 (13:27)
[2021-12-18] MEDS: FAT EMULSION 20% 500 ML in PREMIX 1 EA IV SCH ×2 (14:17→14:29)
--- NOTE | 2021-12-18 16:26 | NUR ---
RT Patient transferred from room 254 to 253. BIPAP plugged into red outlet. Ambu bag by bedside. HR 107 SPO2 100%.
--- NOTE | 2021-12-18 18:51 | NUR ---
RN CLOSING NOTES Patient is alert and responsive to verbal and physical stimuli. On bipap with 02 of 98%. HOB kept elevated. No c/o pain or discomfort. 5 cc output for serna cath at the end of the shift. Endorsed to next shift to collect urine for UA. Orders received in am from nephrology for lasix bid. Per MD Coley to hold CT of chest with contrast due to poor renal function. Bed is in lowest and locked position. Call light with in reach.
--- NOTE | 2021-12-18 19:05 | NUR ---
RECEIVED PT ON BED STILL LETHARGIC OPEN EYES TO STIMULI, ON BIPAP SETTING PER MD SPO2 96-98% BREATHING UNLABORED BUT STILL TACHYPNEIC, TELE MONITOR READS SINUS RHYTHM TO SINUS TACHY 90-110'S HAVE DELANEY PICC WITH ONGOING TPN @ 60 ML/HR NS @ 75ML/HR AND LIPID @ 20 ML/HR HAVE RIVAS CATHETER WITH MINIMAL YELLOW URINE OUTPUT, BED ON LOWEST POSITION AND LOCKED SIDE RAILS UP X2 WILL CONT TO MONITOR
[2021-12-18 19:18] LABS: BILIRUBIN,URINE NEGATIVE (NEGATIVE); COLOR,URINE YELLOW (YELLOW); LEUKOCYTE ESTERASE ,URINE MODERATE (NEGATIVE); NITRITE, URINE NEGATIVE (NEGATIVE); PH,URINE 5.5 (5.0-8.0); PROTEIN,URINE 100 mg/dl (NEGATIVE); UGLUCOSE NEGATIVE (NEGATIVE); UROBILINOGEN,URINE 0.2 EU/dL (0.2)
[2021-12-18 19:32] LABS: BACTERIA,URINE 2+ /HPF (None Seen); RBC,URINE 81-100 /HPF (0-2); WBC,URINE 21-50 /HPF (0-3)
[2021-12-18 19:34] LABS: FINE GRANULAR CASTS,URINE Few /LPF (None Seen); URINE AMORPHOUS URATE Few /HPF (None Seen)
[2021-12-18] MEDS ORDERED: MVI ADULT IV SCH (21:09)
[2021-12-18] MEDS ORDERED: TPN IV SCH (21:09)
[2021-12-18] MEDS ORDERED: TRACE ELEMENTS IV SCH (21:09)
[2021-12-18] MEDS ORDERED: [UNRECOGNIZED DRUG - OTHER] IV SCH (21:09)
--- NOTE | 2021-12-18 21:58 | NUR ---
REPORTED TO DR ISABEL THAT PT IS SINUS TACHY NOW AND ON PAIN MANIFESTED OF FACIAL GRIMACING AND ELEVATED BP AND HR WITH ORDER FOR MORPHINE 0.5 MG X1 NOW NOTED AND CARRIED OUT
[2021-12-18] MEDS ORDERED: MORPHINE SULFATE INJ 2 MG/ML DISP.SYRIN IV ONE (22:00)
[2021-12-19] VITALS (104 sets, daily range): BP systolic 32–139; BP diastolic 16–92
[2021-12-19] MEDS: IV NS 0.9% 1,000 ML IV PRN (03:09)
--- NOTE | 2021-12-19 04:15 | NUR ---
PT IS MORE LETHARGIC NOW, STAT ABG WAS OBTAINED RESULT RELAYED TO DR ISABEL, WITH INSTRUCTION TO CALL ER DOCTOR AND ASK HIM TO ASSESS PT.CALLED ER INSTRUCTED
--- NOTE | 2021-12-19 04:35 | NUR ---
ER DR LUDWIG CAME AND ASSESSED THE PT AND GIVE HIM THE HIS OF THE PT, PER THE HISTORY OF THE PT WITH ESOPHAGEAL MASS HE ADVISED TO CALL THE ANESTHESIOLOGIST TO INTUBATE THE PT
[2021-12-19 04:36] LABS: ABG BASE EXCESS -10.6 mmol/L; ABG OXYGEN SATURATION 80.3 % (92.0-98.5); ABG PCO2 91.5 mmHg (35.0-45.0); ABG PO2 63.9 mmHg (75.0-100.0); AaDO2 557.6 mmHg; COHb 0.3 % (0.5-1.5); MetHb 0.2 % (0.0-1.5); O2Hb 79.9 % (94.0-97.0); SITE, ABG Left Brachial; VENT MODE, BG S/T 18 22/5 100%
[2021-12-19] MEDS ORDERED: PHENYLEPHRINE 10 MG/ML VIAL ONE (04:37)
[2021-12-19] MEDS: PHENYLEPHRINE 50 MG in IV NS 0.9% 245 ML IV PRN ×2 (04:54→08:20)
[2021-12-19 05:03] LABS: BASOPHILS # (AUTO) 0.3 K/uL (0.0-0.2); BASOPHILS % (AUTO) 0.4 % (0.0-2.0); EOSINOPHILS % (AUTO) 0.1 % (0.0-6.0); HEMATOCRIT 29 % (33-45); HEMOGLOBIN 8.7 g/dL (11.5-14.8); LYMPHOCYTES # (AUTO) 1.8 K/uL (0.8-4.8); LYMPHOCYTES % (AUTO) 2.7 % (20.0-44.0); MEAN CORPUSCULAR HGB CONC 31 g/dl (31.0-36.0); MEAN CORPUSCULAR VOLUME 91 fL (82-100); MONOCYTES # (AUTO) 0.2 K/uL (0.1-1.30); MONOCYTES % (AUTO) 0.4 % (2.0-12.0); NEUTROPHILS # (AUTO) 63.2 K/uL (1.8-8.9); NEUTROPHILS % (AUTO) 96.4 % (43.0-81.0); PLATELET COUNT (AUTO) 296 K/uL (150-450); RED BLOOD CELL COUNT(AUTO) 3.14 MIL/uL (4.0-5.2)
[2021-12-19 05:27] LABS: CALCIUM, SERUM 9.1 mg/dL (8.5-10.1); CREATININE 2.7 mg/dL (0.6-1.3); MAGNESIUM 2.3 mg/dL (1.8-2.4); POTASSIUM 3.3 mmol/L (3.5-5.1)
[2021-12-19] MEDS ORDERED: SODIUM BICARBONATE SYR 50 MEQ/50 ML DISP.SYRIN IV ONE (05:30)
[2021-12-19] MEDS: BLOOD SUGAR DIAGNOSTIC 1 EACH STRIP IN SCH ×4 (06:02→23:11)
[2021-12-19 06:14] LABS: WHITE BLOOD COUNT (AUTO) 65.6 K/uL (4.3-11.0)
--- NOTE | 2021-12-19 06:15 | NUR ---
PT WAS INTUBATED BY DR JENSEN HE GAVE 20MG ETOMIDATE AND 50 MG SUCCINYLCHOLINE IV WITH ASSISTANCE FROM RT VENT SETTING ORDERED AC 24 TV 450 100% FIO2 0 PEEP ETT 7 ON ,
[2021-12-19 06:18] LABS: LYMPHOCYTES % (MANUAL) 3 % (16-48); MONOCYTES % (MANUAL) 1 % (0-11.0); NEUTROPHILS % (MANUAL) 96 (42-76)
--- NOTE | 2021-12-19 06:33 | NUR ---
pt intubated by anaesthesia post abg results. 7.0 ett @ 20 cm mist observed in ett. positive color change on co2 detector. ett observed on xray at 6.9 cm above the cinthia. ett advanced in conjunction with xray to 23cm. pt altered and non responsive. suctioned a large amount of frothy maldonado secretions. Addendum: 12/19/21 at 0641 by CAIT MCNAIR RT Amended: Links added.
--- NOTE | 2021-12-19 06:40 | NUR ---
REPORTED TO DR ISABEL THAT PT BP STILL LOW WITH BP 32/16 HR 109 AND THE TITI IS ALREADY MAX OUT DR ISABEL ORDER LEVOPHED TO TITRATE PER PROTOCOL NOTED AND CARRIED OUT
[2021-12-19] MEDS: NOREPINEPHRINE 32 MG in IV NS 0.9% 218 ML IV PRN ×2 (06:48→23:10)
--- NOTE | 2021-12-19 07:30 | NUR ---
RN NOTES PT FOUND SEMI FOWLERS, DISTRESS NOTED, BREATHING WHILE INTUBATED IS RAPID AND SHALLOW, EYES OPEN, TACHYCARDIA NOTED ON THE MONITOR. BP TREATMENT IS ONGOING. L UA PICC IS PATIENT AND INTACT. RIVAS CATH BELOW PATIENT DRAINING BY GRAVITY. PT UNSTABLE, RN WILL CLOSELY MONITOR AND TREAT THROUGHOUT SHIFT. SAFETY MEASURES IN PLACE, BED LOCKED AND IN LOWEST POSITION, SIDE RAILS UPX2, CALL LIGHT WITHIN REACH, BED ALARM ARMED.
--- NOTE | 2021-12-19 08:00 | NUR ---
MD VISIT DR ARVIZU VISITED PT, PERFORMED ASSESSMENT, RN RECOUNTED REPORT FROM PREVIOUS CONTAINER COORDINATOR RN'S EVENTS THAT LED TO INTUBATION. RN ASKED ABOUT TACHYCARDIA, MD DEFERRED TO PROOF COIN COLLECTOR. RN WILL FOLLOW UP
[2021-12-19 08:13] LABS: ABG BASE EXCESS -14.2 mmol/L; ABG OXYGEN SATURATION 90.6 % (92.0-98.5); ABG PH 7.086 (7.350-7.450); ABG PO2 72.7 mmHg (75.0-100.0); AaDO2 588.3 mmHg; COHb 0.3 % (0.5-1.5); MetHb 0.2 % (0.0-1.5); O2Hb 90.1 % (94.0-97.0); SITE, ABG Left Radial; VENT MODE, BG AC 24 450 +0 100%
[2021-12-19] MEDS: CITALOPRAM HYDROBROMIDE 20 MG TABLET PO SCH (08:16)
[2021-12-19] MEDS: FUROSEMIDE 20 MG/2 ML VIAL IV SCH ×2 (08:16→08:29)
[2021-12-19] MEDS: DOCUSATE SODIUM 100 MG CAPSULE PO SCH ×2 (08:16→17:00)
--- NOTE | 2021-12-19 08:27 | NUR ---
MD VISIT DR ISABEL VISITED PT. MD GAVE ORDERS: DISCONTINUE NORMAL SALINE AND HOLD LASIX. RN ACKNOWLEDGED ORDERS, RN WILL UNDO AND WASTE LASIX (JUST ABOUT TO BE GIVEN BUT NOT) AND WILL EXECUTE ORDERS DIRECTED.
--- NOTE | 2021-12-19 08:35 | NUR ---
MD VISIT DR DICKINSON PERFORMED ASSESSMENT, GAVE ORDERS: FENTANYL IV TITRATE PER PROTOCOL FOR ARTHUR'S 3, VERSED IV TITRATE PER PROTOCOL FOR ARTHUR'S 3. RN ACKNOWLEDGED ORDERS AND WILL EXECUTE ORDERS.
[2021-12-19] MEDS ORDERED: ROCURONIUM BROMIDE 50 MG/5 ML IV ONE (08:36)
[2021-12-19] MEDS ORDERED: ETOMIDATE 2 MG/ML VIAL IV ONE (08:36)
[2021-12-19] MEDS ORDERED: SUCCINYLCHOLINE CHLORIDE 20 MG/ML VIAL IV ONE (08:36)
[2021-12-19] MEDS: HYDROCORTISONE SOD SUCCINATE 100 MG/2 ML VIAL IV SCH ×3 (09:58→21:15)
[2021-12-19] MEDS: MIDAZOLAM HCL 100 MG in IV NS 0.9% 80 ML IV PRN (10:00)
[2021-12-19] MEDS: FENTANYL CITRAT IV 2,500 MCG in IV NS 0.9% 200 ML IV PRN (10:05)
[2021-12-19] MEDS: POTASSIUM CL. PREMIX PERIPHER. 50 ML IV SCH ×2 (10:28→11:31)
[2021-12-19] MEDS: ENOXAPARIN SODIUM 40 MG/0.4 ML DISP.SYRIN SQ SCH (11:32)
[2021-12-19 12:11] LABS: ABG BASE EXCESS -12.8 mmol/L; ABG OXYGEN SATURATION 89.5 % (92.0-98.5); ABG PCO2 43.2 mmHg (35.0-45.0); ABG PH 7.164 (7.350-7.450); AaDO2 606.8 mmHg; COHb 0.1 % (0.5-1.5); MetHb 0.2 % (0.0-1.5); O2Hb 89.2 % (94.0-97.0); SITE, ABG Left Brachial; VT, ABG 450 mL
--- NOTE | 2021-12-19 12:31 | NUR ---
ICU/RN PT IS INTUBATED ON 100% FIO2.ON [address] PR[address]NOT STABLE FOR CT SCAN AT THIS TIME.
[2021-12-19] MEDS: FLUCONAZOLE IN NS 100 MG in PREMIX 1 EA IV SCH ×2 (12:48)
[2021-12-19] MEDS: MEROPENEM 1 G in IV NS 0.9% 100 ML IV SCH ×2 (12:48→23:10)
[2021-12-19] MEDS: PHENYLEPHRINE 100 MG in IV NS 0.9% 240 ML IV PRN (14:02)
[2021-12-19] MEDS ORDERED: TPN BAG #7 IV SCH ×2 (15:00)
[2021-12-19] MEDS: VANCOMYCIN 500 MG in IV D5W 100ml IV SCH (16:39)
--- NOTE | 2021-12-19 19:25 | NUR ---
RN NOTES PT FOUND SEMI FOWLERS DISPLAYING NO S/S OF ACUTE DISTRESS, FLACC = 0, RIKERS = 3 AND BILATERAL RISE AND FALL OF THE CHEST OBSERVED. L UA PICC IS PATIENT AND INTACT. RIVAS CATH BELOW PATIENT DRAINING BY GRAVITY. WHILE IMPROVED, PT UNSTABLE, SBAR AND REPORT GIVEN TO HOME SALES SERVICE PROFESSIONAL RN. SAFETY MEASURES IN PLACE, BED LOCKED AND IN LOWEST POSITION, SIDE RAILS UPX2, CALL LIGHT WITHIN REACH, BED ALARM ARMED. PT ENDORSED TO HOME SALES SERVICE PROFESSIONAL FOR JENNIFER, ALL QUESTIONS ANSWERED.
[2021-12-20] VITALS (97 sets, daily range): BP systolic 38–153; BP diastolic 15–81
[2021-12-20] MEDS: PHENYLEPHRINE 100 MG in IV NS 0.9% 240 ML IV PRN ×3 (00:25→22:13)
[2021-12-20 04:15] LABS: BASOPHILS # (AUTO) 0.1 K/uL (0.0-0.2); BASOPHILS % (AUTO) 0.1 % (0.0-2.0); HEMATOCRIT 33 % (33-45); HEMOGLOBIN 9.9 g/dL (11.5-14.8); LYMPHOCYTES # (AUTO) 1.3 K/uL (0.8-4.8); LYMPHOCYTES % (AUTO) 2.2 % (20.0-44.0); MEAN CORPUSCULAR HGB CONC 31 g/dl (31.0-36.0); MEAN CORPUSCULAR VOLUME 89 fL (82-100); MONOCYTES % (AUTO) 1.6 % (2.0-12.0); NEUTROPHILS # (AUTO) 57.4 K/uL (1.8-8.9); NEUTROPHILS % (AUTO) 96.1 % (43.0-81.0); PLATELET COUNT (AUTO) 189 K/uL (150-450); RED BLOOD CELL COUNT(AUTO) 3.64 MIL/uL (4.0-5.2)
[2021-12-20 04:40] LABS: CALCIUM, SERUM 8.9 mg/dL (8.5-10.1); CREATININE 3.4 mg/dL (0.6-1.3); MAGNESIUM 2.1 mg/dL (1.8-2.4); PHOSPHORUS 2.9 mg/dL (2.5-4.9); POTASSIUM 3.8 mmol/L (3.5-5.1)
[2021-12-20 04:49] LABS: WHITE BLOOD COUNT (AUTO) 59.8 K/uL (4.3-11.0)
--- NOTE | 2021-12-20 05:30 | NUR ---
ICU/RN: LEFT EXTERNAL JUGULAR PERIPHERAL IV STARTED BY ANNABELLA SANCHEZ RN.
--- NOTE | 2021-12-20 05:42 | NUR ---
ICU/RN: PT CURRENTLY MAXXED OUT ON LEVO@1MCG/KG/MIN AND TITI@MCG/KG/MIN. CALL PLACED TO DR. ISBAEL. AWAITING CALL BACK.
[2021-12-20] MEDS: HYDROCORTISONE SOD SUCCINATE 100 MG/2 ML VIAL IV SCH (05:48)
--- NOTE | 2021-12-20 05:54 | NUR ---
ICU/RN: SPOKE WITH DR. ISABEL AND HE WANTS ME TO CONTINUE TO MONITOR AND KEEP MAP ABOVE 65. ORDER RECIEVED TO START VASOPRESSIN NEEDED TO MAINTAIN MAP. CURRENT BP 98/71 MAP 74.
[2021-12-20] MEDS: BLOOD SUGAR DIAGNOSTIC 1 EACH STRIP IN SCH ×3 (06:13→18:12)
[2021-12-20] MEDS: VASOPRESSIN INJ 40 UNIT in IV NS 0.9% 38 ML IV PRN (06:44)
--- NOTE | 2021-12-20 06:52 | NUR ---
ICU/RN: VASOPRESSIN STARTED ORDERED.
--- NOTE | 2021-12-20 07:14 | NUR ---
ICU/RN: REPORT TO GERMÁN ORTEGA FOR CONT OF CARE.
--- NOTE | 2021-12-20 07:30 | NUR ---
RN NOTES PT FOUND SUPINE DISPLAYING NO S/S OF ACUTE DISTRESS, FLACC = 0, RIKERS = 3 AND BILATERAL SIDE AND FALL OF THE CHEST OBSERVED. ONGOING TITRATION OF PRESSORS, UNABLE TO OBTAIN ACCURATE AUTOMATIC BP. DOPPLER AND MANUAL CUFF USED TO GET A SYSTOLIC VALUE OF 80. L UA PICC IS PATIENT AND INTACT, L EJ 20G PATIENT AND INTACT. RIVAS CATH BELOW PATIENT DRAINING BY GRAVITY. RN WILL MONITOR AND TREAT THROUGHOUT SHIFT. SAFETY MEASURES IN PLACE, BED LOCKED AND IN LOWEST POSITION, SIDE RAILS UPX2, CALL LIGHT WITHIN REACH, BED ALARM ARMED.
[2021-12-20] MEDS ORDERED: TPN BAG #8 IV SCH ×2 (08:00)
[2021-12-20] MEDS: DOCUSATE SODIUM 100 MG CAPSULE PO SCH ×2 (08:41→17:00)
[2021-12-20 09:00] LABS: ABG BASE EXCESS -15.1 mmol/L; ABG OXYGEN SATURATION 89.5 % (92.0-98.5); ABG PCO2 41.2 mmHg (35.0-45.0); ABG PH 7.128 (7.350-7.450); ABG PO2 70.4 mmHg (75.0-100.0); AaDO2 601.4 mmHg; MetHb 0.2 % (0.0-1.5); O2Hb 89.3 % (94.0-97.0); PEEP,BG 0 cm H2O; SITE, ABG Right Brachial; VT, ABG 475 mL
--- NOTE | 2021-12-20 09:08 | NUR ---
VENT CHANGES BELOW PER DR. DICKINSON: VT 500 ML Addendum: 12/20/21 at 0909 by BHUPENDRA HARRY RT Amended: Links added.
--- NOTE | 2021-12-20 09:30 | NUR ---
MD COMMUNICATION DR MOSES CALLED AND INFORMED RN OF SUSPECTED PNEUMOTHORAX VISUALIZED IN AM XRAY. RN ACKNOWLEDGED AND INFORMED SOLUTIONS DEVELOPER.
[2021-12-20] MEDS: MIDAZOLAM HCL 100 MG in IV NS 0.9% 80 ML IV PRN (10:00)
[2021-12-20] MEDS: FENTANYL CITRAT IV 2,500 MCG in IV NS 0.9% 200 ML IV PRN (10:01)
[2021-12-20] MEDS: ENOXAPARIN SODIUM 40 MG/0.4 ML DISP.SYRIN SQ SCH (11:12)
[2021-12-20] MEDS: FLUCONAZOLE IN NS 100 MG in PREMIX 1 EA IV SCH ×2 (12:30)
[2021-12-20] MEDS: MEROPENEM 1 G in IV NS 0.9% 100 ML IV SCH ×2 (12:30→23:47)
[2021-12-20] MEDS: NOREPINEPHRINE 32 MG in IV NS 0.9% 218 ML IV PRN ×2 (12:58→23:25)
--- NOTE | 2021-12-20 13:50 | NUR ---
[facility] RN CALLED [facility]: REFERRAL NUMBER IS [phone]
[2021-12-20] MEDS: FAT EMULSION 20% 500 ML in PREMIX 1 EA IV SCH (14:01)
[2021-12-20 16:15] LABS: LYMPHOCYTES % (MANUAL) 2 % (16-48); MONOCYTES % (MANUAL) 4 % (0-11.0); NEUTROPHILS % (MANUAL) 94 (42-76)
[2021-12-20] MEDS: VANCOMYCIN 500 MG in IV D5W 100ml IV SCH (16:31)
--- NOTE | 2021-12-20 19:10 | NUR ---
RN NOTES PT FOUND SEMI FOWLERS DISPLAYING NO S/S OF ACUTE DISTRESS, FLACC = 0, RIKERS = 3 AND BILATERAL SIDE AND FALL OF THE CHEST OBSERVED. ONGOING TITRATION OF PRESSORS, BP IS READABLE AT THIS POINT THROUGH AUTOMATIC CUFF. L UA PICC IS PATIENT AND INTACT, L EJ 20G PATIENT AND INTACT. RIVAS CATH BELOW PATIENT DRAINING BY GRAVITY. SBAR AND REPORT GIVEN TO CAR RUNNER RN, ALL QUESTIONS ANSWERED. SAFETY MEASURES IN PLACE, BED LOCKED AND IN LOWEST POSITION, SIDE RAILS UPX2, CALL LIGHT WITHIN REACH, BED ALARM ARMED. PT ENDORSED FOR JENNIFER.
--- NOTE | 2021-12-20 19:45 | NUR ---
ICU/CLAIMS EXAMINER RECEIVED REPORT FROM DAY NURSE. SEE FLOWSHEET FOR ASSESSMENT. PT HAS MANY IV DRIPS WHICH REQUIRE TO BE ADDRESSED ON THE IV SPREAD SHEET ALONG WITH THE TITRATIONS TO EACH. PT WAS THEN TURNED AND REPOSITIONED SLOWLY AND CAREFULLY FOR COMFORT AND CARE. PT IS ON TITI AND LEVO FOR UNASTABLE BLOOD PRESSURE, VASO WAS JUST TUR NIKOLAI OFF BY DAY SHIFT. P[T IS ORALLY INTUBATED WITH FENTANYL AND VERSED DRIP FOR SEDATION. WILL CLOSELY MONITOR THIS PT.
[2021-12-21] VITALS (97 sets, daily range): BP systolic 78–128; BP diastolic 40–75
--- NOTE | 2021-12-21 00:30 | NUR ---
ICU/GANG WORKER PT REMAINS UNSTABLE WITH SATURATION SLOWLY INCREASING TO MID 80'S AND BLOOD PRESSURE HOLDING AT 90'S TO 100'S. WILL NOT BE GIVING THIS PT A BATH DUE TO POSSIBILITY OF THIS PT'S SATURATION DECEASING.
[2021-12-21] MEDS: BLOOD SUGAR DIAGNOSTIC 1 EACH STRIP IN SCH ×4 (00:31→17:43)
[2021-12-21] MEDS ORDERED: TPN BAG #9 IV SCH ×2 (00:40)
[2021-12-21 04:28] LABS: BASOPHILS # (AUTO) 0.1 K/uL (0.0-0.2); BASOPHILS % (AUTO) 0.2 % (0.0-2.0); HEMATOCRIT 30 % (33-45); HEMOGLOBIN 9.2 g/dL (11.5-14.8); LYMPHOCYTES # (AUTO) 2.1 K/uL (0.8-4.8); LYMPHOCYTES % (AUTO) 3.1 % (20.0-44.0); MEAN CORPUSCULAR HGB CONC 31 g/dl (31.0-36.0); MEAN CORPUSCULAR VOLUME 93 fL (82-100); MONOCYTES # (AUTO) 1.1 K/uL (0.1-1.30); MONOCYTES % (AUTO) 1.6 % (2.0-12.0); NEUTROPHILS # (AUTO) 64.7 K/uL (1.8-8.9); NEUTROPHILS % (AUTO) 95.1 % (43.0-81.0); PLATELET COUNT (AUTO) 222 K/uL (150-450); RED BLOOD CELL COUNT(AUTO) 3.24 MIL/uL (4.0-5.2)
--- NOTE | 2021-12-21 04:30 | NUR ---
ICU/STACK MATCHER PT REMAINS UNSTABLE WITH SATURATION SLOWLY INCREASING TO MID 80'S AND BLOOD PRESSURE HOLDING AT 90'S TO 100'S. WILL NOT BE GIVING THIS PT A BATH DUE TO POSSIBILITY OF THIS PT'S SATURATION DECEASING. CHARGE NURSE AWARE.
[2021-12-21 04:39] LABS: CALCIUM, SERUM 8.5 mg/dL (8.5-10.1); PHOSPHORUS 3.1 mg/dL (2.5-4.9); POTASSIUM 3.9 mmol/L (3.5-5.1)
[2021-12-21 04:40] LABS: WHITE BLOOD COUNT (AUTO) 68.1 K/uL (4.3-11.0)
[2021-12-21 04:46] LABS: BAND % (MANUAL) 3 % (0.0-5.0); LYMPHOCYTES % (MANUAL) 3 % (16-48); MONOCYTES % (MANUAL) 3 % (0-11.0); NEUTROPHILS % (MANUAL) 91 (42-76)
[2021-12-21 04:49] LABS: MAGNESIUM 1.9 mg/dL (1.8-2.4)
[2021-12-21] MEDS: DOCUSATE SODIUM 100 MG CAPSULE PO SCH ×2 (09:00→16:49)
--- NOTE | 2021-12-21 09:15 | NUR ---
PO MEDICATION NOT GIVEN DUE TO PT WAS INTUBATED AND ON NPO STATUS
[2021-12-21] MEDS: PHENYLEPHRINE 100 MG in IV NS 0.9% 240 ML IV PRN ×2 (09:46→20:30)
[2021-12-21] MEDS: FENTANYL CITRAT IV 2,500 MCG in IV NS 0.9% 200 ML IV PRN (10:19)
[2021-12-21] MEDS: MIDAZOLAM HCL 100 MG in IV NS 0.9% 80 ML IV PRN (10:20)
[2021-12-21] MEDS: NOREPINEPHRINE 32 MG in IV NS 0.9% 218 ML IV PRN ×2 (10:30→21:33)
[2021-12-21] MEDS: ENOXAPARIN SODIUM 40 MG/0.4 ML DISP.SYRIN SQ SCH (10:35)
[2021-12-21] MEDS: MEROPENEM 1 G in IV NS 0.9% 100 ML IV SCH ×2 (11:11→23:38)
--- NOTE | 2021-12-21 11:45 | NUR ---
DR. ARVIZU WAS NOTIFIED RELATED TO ALBUMIN LEVEL=1.1, NO NEW ORDER NOTED.
[2021-12-21 12:03] LABS: ABG BASE EXCESS -15.7 mmol/L; ABG OXYGEN SATURATION 87.2 % (92.0-98.5); ABG PCO2 46.9 mmHg (35.0-45.0); ABG PH 7.079 (7.350-7.450); ABG PO2 66.9 mmHg (75.0-100.0); AaDO2 599.2 mmHg; COHb 0.3 % (0.5-1.5); MetHb 0.4 % (0.0-1.5); O2Hb 86.6 % (94.0-97.0); PEEP,BG 0 cm H2O; SITE, ABG Left Brachial; VENT MODE, BG AC 28 500 100%; VT, ABG 500 mL
[2021-12-21] MEDS: FLUCONAZOLE IN NS 100 MG in PREMIX 1 EA IV SCH ×2 (12:03)
[2021-12-21] MEDS: VANCOMYCIN 500 MG in IV D5W 100ml IV SCH (15:41)
[2021-12-21] MEDS: VASOPRESSIN INJ 40 UNIT in IV NS 0.9% 38 ML IV PRN (15:47)
[2021-12-21] MEDS: IV NS 0.9% 250 ML IV PRN (16:06)
--- NOTE | 2021-12-21 16:54 | NUR ---
PT IS VERY UNSTABLE AT THIS MOMENT CONTINUE TO DESATURATE WITH SPO2 <80% BLOOD PRESSURE SBP ON THE LOW'S 90, CURRENTLY ON LEVOPHED 1 MCG/KG/MIN, NEOSYNEPHRINE 3 MCG/KG/MIN AND VASOPRESSIN @ 0.01 UNIT /MIN WILL NOT DO A BED BATH FOR NOW TO AVOID FURTHER DETERIORATION, WILL CONT TO MONITOR
[2021-12-21] MEDS ORDERED: TPN BAG #10 IV SCH ×4 (17:20)
--- NOTE | 2021-12-21 19:02 | NUR ---
RN CLOSING NOTES: PT. REMAINED SEDATED; ON VASOPRESSORS PER MD ORDER, ON FENTANYL/VERSED PER ORDER; TPN INFUSING AT 60ML/HR; PT. SATURATION 71% ON FULL VENT SETTING; SINUS TACHY AT 132. ENDORSED TO INCOMING NIGHT RN.
--- NOTE | 2021-12-21 19:45 | NUR ---
ICU/BAND ATTACHER RECEIVED REPORT FROM DAY NURSE. SEE FLOWSHEET FOR ASSESSMENT. PT HAS MANY IV DRIPS WHICH REQUIRE TO BE ADDRESSED ON THE IV SPREAD SHEET ALONG WITH THE TITRATIONS TO EACH. PT WAS THEN TURNED AND REPOSITIONED SLOWLY AND CAREFULLY FOR COMFORT AND CARE. PT IS ON TITI, VASO, AND LEVO FOR UNSTABLE BLOOD PRESSURE. PT IS ORALLY INTUBATED WITH FENTANYL AND VERSED DRIP FOR SEDATION. WILL CLOSELY MONITOR THIS PT. PT CURRENTLY HAS NO RADIAL PULSE, AND IS COLD TO TOUCH.
[2021-12-22] VITALS (65 sets, daily range): BP systolic 77–160; BP diastolic 33–83
--- NOTE | 2021-12-22 00:10 | NUR ---
ICU/TRUCK DRIVER PT'S MIDNIGHT BLOOD SUGAR IS 66, THERE IS NO COVERAGE FOR THIS BUT WILL CLOSELY MONITOR THIS PT'S SUGARS.
[2021-12-22] MEDS: BLOOD SUGAR DIAGNOSTIC 1 EACH STRIP IN SCH ×5 (00:24→23:29)
[2021-12-22 04:10] LABS: BASOPHILS # (AUTO) 0.1 K/uL (0.0-0.2); BASOPHILS % (AUTO) 0.2 % (0.0-2.0); HEMATOCRIT 27 % (33-45); LYMPHOCYTES # (AUTO) 3.6 K/uL (0.8-4.8); MEAN CORPUSCULAR HGB CONC 30 g/dl (31.0-36.0); MEAN CORPUSCULAR VOLUME 91 fL (82-100); MONOCYTES # (AUTO) 0.4 K/uL (0.1-1.30); MONOCYTES % (AUTO) 0.7 % (2.0-12.0); NEUTROPHILS % (AUTO) 90.1 % (43.0-81.0); PLATELET COUNT (AUTO) 189 K/uL (150-450); RED BLOOD CELL COUNT(AUTO) 2.95 MIL/uL (4.0-5.2)
[2021-12-22 04:28] LABS: WHITE BLOOD COUNT (AUTO) 52.2 K/uL (4.3-11.0)
[2021-12-22 04:37] LABS: BAND % (MANUAL) 2 % (0.0-5.0); LYMPHOCYTES % (MANUAL) 7 % (16-48); MONOCYTES % (MANUAL) 1 % (0-11.0); NEUTROPHILS % (MANUAL) 88 (42-76)
[2021-12-22 04:50] LABS: CREATININE 4.4 mg/dL (0.6-1.3); MAGNESIUM 1.9 mg/dL (1.8-2.4); PHOSPHORUS 3.6 mg/dL (2.5-4.9); POTASSIUM 4.4 mmol/L (3.5-5.1)
[2021-12-22] MEDS: PHENYLEPHRINE 100 MG in IV NS 0.9% 240 ML IV PRN ×2 (06:22→18:14)
[2021-12-22] MEDS: NOREPINEPHRINE 32 MG in IV NS 0.9% 218 ML IV PRN ×2 (06:23→20:20)
[2021-12-22] MEDS ORDERED: VASOPRESSIN INJ 20 UNIT/ML VIAL ONE (06:26)
[2021-12-22] MEDS: VASOPRESSIN INJ 40 UNIT in IV NS 0.9% 38 ML IV PRN ×2 (06:31→21:02)
[2021-12-22] MEDS: DOCUSATE SODIUM 100 MG CAPSULE PO SCH ×2 (08:00→18:12)
[2021-12-22 09:50] LABS: ABG BASE EXCESS -19.3 mmol/L; ABG OXYGEN SATURATION 89.3 % (92.0-98.5); ABG PCO2 39.8 mmHg (35.0-45.0); ABG PH 7.033 (7.350-7.450); ABG PO2 72.7 mmHg (75.0-100.0); AaDO2 600.5 mmHg; COHb 0.3 % (0.5-1.5); MetHb 0.4 % (0.0-1.5); O2Hb 88.7 % (94.0-97.0); SITE, ABG Left Brachial
--- NOTE | 2021-12-22 10:10 | NUR ---
rn notes patient getting pig tail, and chest tube placement at this time bedside on right upper chest via DNP Georgette, and INSIGHTS MANAGER Show. chest xray ordered STAT.HR-119, o2-98, Bp- 136/64, patient intubated, no acute respiratory distress. patient DNR status. will follow up.
[2021-12-22] MEDS ORDERED: TPN BAG #11 IV SCH ×8 (10:11)
[2021-12-22] MEDS: MIDAZOLAM HCL 100 MG in IV NS 0.9% 80 ML IV PRN (10:56)
[2021-12-22] MEDS: FENTANYL CITRAT IV 2,500 MCG in IV NS 0.9% 200 ML IV PRN (11:00)
[2021-12-22] MEDS: Sodium Bicarbonate 100 MEQ in IV D5W 1,000 ML IV SCH (12:35)
[2021-12-22] MEDS: ENOXAPARIN SODIUM 40 MG/0.4 ML DISP.SYRIN SQ SCH (12:40)
[2021-12-22] MEDS: MEROPENEM 1 G in IV NS 0.9% 100 ML IV SCH ×2 (12:44→23:31)
[2021-12-22] MEDS: FLUCONAZOLE IN NS 100 MG in PREMIX 1 EA IV SCH ×2 (12:45)
[2021-12-22] MEDS: FAT EMULSION 20% 500 ML in PREMIX 1 EA IV SCH (15:22)
--- NOTE | 2021-12-22 18:34 | NUR ---
rn notes pm care done, suction assist turn and reposition, pm medication administered, bs-98mg/dl. chest tube draining 210ml. no output on serna. endorsed oncoming nurse follow plan of care.
--- NOTE | 2021-12-22 19:30 | NUR ---
RN NOTE RECEIVED PATIENT IN BED, SEDATED. INTUBATED. ETT 7.0/23 CM AT THE LIP. VENT SETTINGS ARE FOLLOWS AC:32, FIO2: 100%, VT 500 ML, PEEP OFF. TOLERATING WELL. OXYGEN SATURATION OF 93 PERCENT. ON TELE MONITORING, SINUS TACHYCARDIA. SKIN COOL AND DRY. NOTED WITH LEFT UPPER ARM PICC LINE, AND LEFT EJ 20G. PATENT. NO BLEEDING. CURRENTLY INFUSING MULTIPLE DRIPS. NOTED WITH LEFT UPPER CHEST CHEST TUBE ON CONTINOUS WALL SUCTION. -20 CM. DRAINING SEROSANGUINEOUS FLUIDS. CONTINUOS BUBBLING NOTED. DRESSING INTACT. SECURED BELOW PATIENT. NOTED WITH RIVAS CATHETER, NO URINE OUTPUT. NO BLEEDING. EDEMA NOTED ON ALL FOUR EXTREMITIES. BED LOW, IN LOCKED POSITION, WILL CONTINUE TO MONITOR.
--- NOTE | 2021-12-22 19:56 | NUR ---
RECEIVED PT INTUBATED ON [facility] VENT. 7.0 ETT SECURED AT 23CM AT THE LIP. SX'D SMALL AMT OF THICK WHITE SECRETIONS. PT TOLERATING VENT SETTINGS. VENT ALARMS SET AND AUDIBLE. CONTINUE TO MONITOR. Addendum: 12/22/21 at 1958 by CORIN KEARNS RT Amended: Links added.
[2021-12-22] MEDS: IV NS 0.9% 250 ML IV PRN (20:11)
[2021-12-23] VITALS (106 sets, daily range): BP systolic 52–136; BP diastolic 25–70
[2021-12-23] MEDS: Sodium Bicarbonate 100 MEQ in IV D5W 1,000 ML IV SCH (01:01)
[2021-12-23 04:20] LABS: BASOPHILS # (AUTO) 0.2 K/uL (0.0-0.2); BASOPHILS % (AUTO) 0.3 % (0.0-2.0); EOSINOPHILS % (AUTO) 2.2 % (0.0-6.0); HEMATOCRIT 23 % (33-45); HEMOGLOBIN 7.4 g/dL (11.5-14.8); LYMPHOCYTES % (AUTO) 4.5 % (20.0-44.0); MEAN CORPUSCULAR HGB CONC 32 g/dl (31.0-36.0); MEAN CORPUSCULAR VOLUME 91 fL (82-100); MONOCYTES # (AUTO) 0.6 K/uL (0.1-1.30); MONOCYTES % (AUTO) 0.9 % (2.0-12.0); NEUTROPHILS # (AUTO) 60.9 K/uL (1.8-8.9); NEUTROPHILS % (AUTO) 92.1 % (43.0-81.0); PLATELET COUNT (AUTO) 165 K/uL (150-450); RED BLOOD CELL COUNT(AUTO) 2.57 MIL/uL (4.0-5.2)
[2021-12-23 04:37] LABS: CALCIUM, SERUM 7.2 mg/dL (8.5-10.1); CREATININE 4.7 mg/dL (0.6-1.3); MAGNESIUM 1.6 mg/dL (1.8-2.4); PHOSPHORUS 3.3 mg/dL (2.5-4.9); POTASSIUM 4.2 mmol/L (3.5-5.1)
[2021-12-23 04:41] LABS: WHITE BLOOD COUNT (AUTO) 66.1 K/uL (4.3-11.0)
[2021-12-23] MEDS: PHENYLEPHRINE 100 MG in IV NS 0.9% 240 ML IV PRN ×2 (05:09→18:22)
[2021-12-23] MEDS: BLOOD SUGAR DIAGNOSTIC 1 EACH STRIP IN SCH ×4 (05:24→23:08)
[2021-12-23 05:43] LABS: BAND % (MANUAL) 24 % (0.0-5.0); LYMPHOCYTES % (MANUAL) 8 % (16-48); MYELOCYTES % 4 % (0-0); NEUTROPHILS % (MANUAL) 57 (42-76); REACTIVE LYMPHOCYTES 1 % (0-0)
[2021-12-23 06:07] LABS: BLASTS, MANUAL % 1 % (0-0); EOSINOPHILS % (MANUAL) 1 % (0-4); METAMYELOCYTES % 4 % (0-0); MONOCYTES % (MANUAL) 1 % (0-11.0)
--- NOTE | 2021-12-23 08:00 | NUR ---
RN NOTES RECEIVED PATIENT ETT/VENT, ON DNR CODE. NO ACUTE RESPIRATORY DISTRESS, FIO2-525 INCREASED AFTER ABG RESULT VIA RT PER Dr MARISCAL ORDER. PATIENT SEDATED ON FENTANYL 75 MCG/KG/HR, AND VERSECD1 MG/ML/HR. GET TO ORDER VIA Dr DICKINSON TO D/C VERSED ORDER. ORDER TAKEN AND CARRIED OUT. PATIENT ON PRESSORS TITRATING PER PROTOCOL, BICARB 2 AMPS @75 ML/HR , TPN @60ML/HR LIPID 20ML/HR. PATIENT HAS PICC LINE ON DELANEY, AND LEFT EJ INTACT. CHEST TUBE IS DRAINING WELL WITH INTERMITTENT SUCTION. SUCTION , MOUTH CARE DONE. ASSIST TURN AND REPOSTION Q 2 HR. WILL FOLLOW UP.
[2021-12-23 08:55] LABS: ABG BASE EXCESS -19.8 mmol/L; ABG OXYGEN SATURATION 90.9 % (92.0-98.5); ABG PCO2 47.5 mmHg (35.0-45.0); ABG PH 6.972 (7.350-7.450); ABG PO2 73.9 mmHg (75.0-100.0); AaDO2 591.6 mmHg; MetHb 0.3 % (0.0-1.5); O2Hb 90.6 % (94.0-97.0); SITE, ABG Right Brachial; VENT MODE, BG AC 32 500 +0 100%
[2021-12-23] MEDS ORDERED: SODIUM BICARBONATE SYR 50 MEQ/50 ML DISP.SYRIN IV ONE ×2 (09:00→09:30)
[2021-12-23] MEDS ORDERED: VANCOMYCIN 500 MG in IV D5W 100ml IV PRN (09:00)
[2021-12-23] MEDS: DOCUSATE SODIUM 100 MG CAPSULE PO SCH ×2 (09:07→18:23)
[2021-12-23] MEDS: Sodium Bicarbonate 150 MEQ in IV D5W 1,000 ML IV SCH (09:33)
[2021-12-23] MEDS ORDERED: Magnesium 1GM/D5W 100ML PREMIX 100 ML IV SCH (10:00)
[2021-12-23] MEDS ORDERED: TPN BAG #12 IV SCH ×4 (10:11)
[2021-12-23] MEDS: ENOXAPARIN SODIUM 40 MG/0.4 ML DISP.SYRIN SQ SCH (12:19)
[2021-12-23] MEDS: MEROPENEM 1 G in IV NS 0.9% 100 ML IV SCH ×2 (12:21→23:08)
[2021-12-23] MEDS: FLUCONAZOLE IN NS 100 MG in PREMIX 1 EA IV SCH ×2 (12:21)
--- NOTE | 2021-12-23 12:33 | NUR ---
RN NOTES BS-83 MG/DL , DUE MEDICATION ADMINISTERED, EDEMA GENERALIZED, OOZING FROM UPPER ARMS, AND DISCOLORATION UPPERB AND LOWER EXTREMITIES, NO REACTING EYES TROUGH LIGHT, INFUSING DUE MEDICATION. PATIENT HAS POOR PROGNOSIS, NO OUTPUT FROM RIVAS, CHEST TUBE INTACT DRAINING WELL. ASSIST TURN AND REPOSTION Q 2 HR.
[2021-12-23] MEDS: VASOPRESSIN INJ 40 UNIT in IV NS 0.9% 38 ML IV PRN (14:01)
--- NOTE | 2021-12-23 18:47 | NUR ---
RN NOTES BS-43 MG/DL ADMINISTERED DEXTROSE 50% SYRINGE . DUE MEDICATION ADMINISTERED, TITRATED MEDICATION PER PROTOCOL. CHEST TUB WAS DRAINING 600ML, NO OUTPUT FROM RIVAS. ENDORSED ONCOMING NURSE JENNIFER.
[2021-12-23] MEDS ORDERED: DEXTROSE 50%-WATER 50 ML DISP.SYRIN IVP PRN (19:00)
--- NOTE | 2021-12-23 20:00 | NUR ---
RN NOTE RECEIVED PATIENT IN BED, SEDATED. UNROUSABLE TO DEEP PAIN. INTUBATED. ETT 7.0/23 CM AT THE LIP. VENT SETTINGS ARE FOLLOWS AC:32, FIO2: 100%, VT 525 ML, PEEP OFF. TOLERATING WELL. OXYGEN SATURATION OF 95 PERCENT. ON TELE MONITORING, SINUS TACHYCARDIA. SKIN COOL TO TOUCH. SWELLING NOTED ON BILATERAL UPPER EXTREMITIES. NOTED WITH LEFT UPPER ARM PICC LINE, AND LEFT EJ 20G. PATENT. NO BLEEDING. CURRENTLY INFUSING MULTIPLE DRIPS. NOTED WITH LEFT UPPER CHEST CHEST TUBE ON CONTINUOUS WALL SUCTION. -20 CM. DRAINING SEROUS FLUIDS. CONTINUOS BUBBLING NOTED. DRESSING INTACT. SECURED BELOW PATIENT. NOTED WITH RIVAS CATHETER, NO URINE OUTPUT. NO BLEEDING. EDEMA NOTED ON ALL FOUR EXTREMITIES. BED LOW, IN LOCKED POSITION, WILL CONTINUE TO MONITOR.
[2021-12-23] MEDS: FENTANYL CITRAT IV 2,500 MCG in IV NS 0.9% 200 ML IV PRN (21:58)
[2021-12-23] MEDS: NOREPINEPHRINE 32 MG in IV NS 0.9% 218 ML IV PRN (22:31)
[2021-12-24] VITALS (46 sets, daily range): BP systolic 57–124; BP diastolic 20–68
[2021-12-24] MEDS: Sodium Bicarbonate 150 MEQ in IV D5W 1,000 ML IV SCH ×2
[2021-12-24] MEDS: PHENYLEPHRINE 100 MG in IV NS 0.9% 240 ML IV PRN (02:14)
[2021-12-24] MEDS: VASOPRESSIN INJ 40 UNIT in IV NS 0.9% 38 ML IV PRN (04:45)
[2021-12-24 05:01] LABS: BASOPHILS # (AUTO) 0.2 K/uL (0.0-0.2); BASOPHILS % (AUTO) 0.3 % (0.0-2.0); EOSINOPHILS % (AUTO) 1.7 % (0.0-6.0); HEMATOCRIT 22 % (33-45); LYMPHOCYTES # (AUTO) 3.2 K/uL (0.8-4.8); LYMPHOCYTES % (AUTO) 4.8 % (20.0-44.0); MEAN CORPUSCULAR HGB CONC 30 g/dl (31.0-36.0); MEAN CORPUSCULAR VOLUME 89 fL (82-100); MONOCYTES # (AUTO) 0.4 K/uL (0.1-1.30); MONOCYTES % (AUTO) 0.6 % (2.0-12.0); NEUTROPHILS # (AUTO) 61.5 K/uL (1.8-8.9); NEUTROPHILS % (AUTO) 92.6 % (43.0-81.0); PLATELET COUNT (AUTO) 127 K/uL (150-450); RED BLOOD CELL COUNT(AUTO) 2.43 MIL/uL (4.0-5.2)
[2021-12-24] MEDS: BLOOD SUGAR DIAGNOSTIC 1 EACH STRIP IN SCH (05:12)
[2021-12-24 05:27] LABS: HEMOGLOBIN 6.5 g/dL (11.5-14.8); WHITE BLOOD COUNT (AUTO) 66.4 K/uL (4.3-11.0)
[2021-12-24 05:37] LABS: CALCIUM, SERUM 6.9 mg/dL (8.5-10.1); CREATININE 4.8 mg/dL (0.6-1.3); MAGNESIUM 1.9 mg/dL (1.8-2.4); PHOSPHORUS 2.4 mg/dL (2.5-4.9); POTASSIUM 3.4 mmol/L (3.5-5.1)
--- NOTE | 2021-12-24 05:41 | NUR ---
RN NOTE RECEIVED CRITICAL LAB VALUES. WBC 66.4, HGB 6.5. BP 115/56, HR 105, ON 3X PRESSORES. NO ACTIVE BLEEDING. , DAVE, INFORMED. NO SIGNED CONSET FOR BLOOD TRANSFUSION. PATIENT IS SELF RESPONSIBLE. UNABLE TO SIGN AT THIS TIME SHE IS SEDATED. PATIENT HAS NO RESPONSIBLE PART. PER MD, "PATIENT WILL NEED 2 PROVIDER TO SIGN, WILL NEED TO GRAB WHOEVER COMES IN THE AM". CHARGE NURSE AWARE. WILL ENDORSE TO AM SHIFT. WILL CONTINUE TO MONITOR
--- NOTE | 2021-12-24 05:59 | NUR ---
RN NOTE PER DAVE MENDOZA, ORDER TYPE AND SCREEN. NOTED AND CARRIED OUT.
--- NOTE | 2021-12-24 07:20 | NUR ---
RN NOTES PT FOUND SEMI FOWLERS DISPLAYING NO S/S OF DISTRESS, FLACC = 0, RIKERS = 3 AND BILATERAL RISE AND FALL OF THE CHEST OBSERVED. L EJ 20G AND L UA PICC ARE PATIENT AND INTACT. R CHEST TUBE DRESSING IS CLEAN AND DRY. BUBBLING OBSERVED IN SUCTION CHAMBER, RN MARKED START OF SHIFT SPECIMEN CHAMBER. RIVAS CATH BELOW PATIENT DRAINING BY GRAVITY. PT REMAINS HEMODYNAMICALLY UNSTABLE, RN WILL MONITOR AND TREAT THROUGHOUT SHIFT. SAFETY MEASURES IN PLACE, BED LOCKED AND LOWEST POSITION, SIDE RAILS UPX2, CALL LIGHT WITHIN REACH, BED ALARM ARMED.
[2021-12-24] MEDS ORDERED: TPN BAG #13 IV SCH ×4 (10:11)
[2021-12-24 10:17] LABS: ABG BASE EXCESS -11.8 mmol/L; ABG OXYGEN SATURATION 89.7 % (92.0-98.5); ABG PH 7.137 (7.350-7.450); ABG PO2 65.8 mmHg (75.0-100.0); AaDO2 597.2 mmHg; COHb 0.4 % (0.5-1.5); MetHb 0.4 % (0.0-1.5); PEEP,BG 0 cm H2O; SITE, ABG Right Brachial; VT, ABG 525 mL
--- NOTE | 2021-12-24 10:28 | NUR ---
COMMUNICATION RN SPOKE TO PRIMARY PROVIDER, DR ARVIZU. GAVE ORDERS, STOP ALL PRESSORS AND TPN, LEAVE FENTANYL FOR COMFORT. RN ACKNOWLEDGED AND WILL CARRY OUT ORDERS. Addendum: 12/24/21 at 1111 by RICKIE MATIAS RN COMFORT MEASURES ONLY
[2021-12-24 10:33] LABS: BAND % (MANUAL) 2 % (0.0-5.0); EOSINOPHILS % (MANUAL) 1 % (0-4); LYMPHOCYTES % (MANUAL) 6 % (16-48); METAMYELOCYTES % 3 % (0-0); MYELOCYTES % 3 % (0-0); NEUTROPHILS % (MANUAL) 85 (42-76)
[2021-12-24] MEDS ORDERED: POTASSIUM CL. PREMIX PERIPHER. 50 ML IV SCH ×2 (11:00→22:00)
[2021-12-24] MEDS: ENOXAPARIN SODIUM 40 MG/0.4 ML DISP.SYRIN SQ SCH (11:00)
--- NOTE | 2021-12-24 11:45 | NUR ---
RN NOTE CARDIAC ARREST OCCURRED. PT PRONOUNCED AT 1145.
[2021-12-24] MEDS ORDERED: Magnesium 1GM/D5W 100ML PREMIX 100 ML IV SCH ×2 (21:00→22:00)
[2021-12-25] MEDS ORDERED: TPN BAG #14 IV SCH ×4 (10:00)
== END 2021-12-24 18:14 | DRG 870 ==
LOC: ER 05:45 → TRANSITION 09:46 → ICU 10:24 → TELE 12-13 19:41 → ICU 12-17 23:23
PROVIDERS: ADMIT Internal Medicine; ATTEND Internal Medicine
PROC: 05HB33Z Insertion of Infusion Device into Right Basilic Vein, Percutaneous Approach (ICD-10-PCS; principal; 2021-12-13)
PROC: 02HV33Z Insertion of Infusion Device into Superior Vena Cava, Percutaneous Approach (ICD-10-PCS; 2021-12-14)
PROC: B548ZZA Ultrasonography of Superior Vena Cava, Guidance (ICD-10-PCS; 2021-12-14)
PROC: 02HV33Z Insertion of Infusion Device into Superior Vena Cava, Percutaneous Approach (ICD-10-PCS; 2021-12-16)
PROC: B548ZZA Ultrasonography of Superior Vena Cava, Guidance (ICD-10-PCS; 2021-12-16)
PROC: 5A09457 Assistance with Respiratory Ventilation, 24-96 Consecutive Hours, Continuous Positive Airway Pressure (ICD-10-PCS; 2021-12-18)
PROC: 5A1955Z Respiratory Ventilation, Greater than 96 Consecutive Hours (ICD-10-PCS; 2021-12-19)
PROC: 0BH18EZ Insertion of Endotracheal Airway into Trachea, Via Natural or Artificial Opening Endoscopic (ICD-10-PCS; 2021-12-19)
PROC: 0W9930Z Drainage of Right Pleural Cavity with Drainage Device, Percutaneous Approach (ICD-10-PCS; 2021-12-22)
DX: A41.9 Sepsis, unspecified organism (principal); G93.41 Metabolic encephalopathy; J96.01 Acute respiratory failure with hypoxia; J69.0 Pneumonitis due to inhalation of food and vomit; E43 Unspecified severe protein-calorie malnutrition; J96.02 Acute respiratory failure with hypercapnia; R65.21 Severe sepsis with septic shock; K22.3 Perforation of esophagus; N17.9 Acute kidney failure, unspecified; C15.5 Malignant neoplasm of lower third of esophagus; E87.1 Hypo-osmolality and hyponatremia; E87.2 Acidosis; R64 Cachexia; J94.2 Hemothorax; J98.11 Atelectasis; J90 Pleural effusion, not elsewhere classified; J93.82 Other air leak; E83.42 Hypomagnesemia; E87.6 Hypokalemia; I25.10 Atherosclerotic heart disease of native coronary artery without angina pectoris; D75.839 Thrombocytosis, unspecified; Z85.01 Personal history of malignant neoplasm of esophagus; Z66 Do not resuscitate; Z51.5 Encounter for palliative care; Z20.822 Contact with and (suspected) exposure to COVID-19; Z88.8 Allergy status to other drugs, medicaments and biological substances; R26.9 Unspecified abnormalities of gait and mobility; F32.9 Major depressive disorder, single episode, unspecified; E88.09 Other disorders of plasma-protein metabolism, not elsewhere classified; I11.0 Hypertensive heart disease with heart failure; I50.9 Heart failure, unspecified; Z91.81 History of falling; Z79.899 Other long term (current) drug therapy; D50.9 Iron deficiency anemia, unspecified; I48.91 Unspecified atrial fibrillation; G62.9 Polyneuropathy, unspecified; E83.52 Hypercalcemia; I25.2 Old myocardial infarction; E83.51 Hypocalcemia; Y83.8 Other surgical procedures as the cause of abnormal reaction of the patient, or of later complication, without mention of misadventure at the time of the procedure; Y92.89 Other specified places as the place of occurrence of the external cause; R59.0 Localized enlarged lymph nodes; K29.70 Gastritis, unspecified, without bleeding
CPT/HCPCS: 31720; 36410; 36415; 36569; 36600; 71045-TC; 76604-TC; 80048-TC; 80061-TC; 80076-TC; 80202-TC; 81001; 82040-TC; 82378; 82533; 82728-TC; 82784; 82803-TC; 82962-TC; 83540-TC; 83605-TC; 83735-TC; 83880; 84100-TC; 84134-TC; 84155; 84165; 84443-TC; 84478-TC; 84484-TC; 85025-TC; 85378-TC; 85730-TC; 86334; 86706; 86850-TC; 87040-TC; 87081-TC; 87086-TC; 87340; 93307-TC; 94002-TC; 94003-TC; 94760-TC; 94762-TC; 94799-TC; 99082-TC; A4216; A6403; C9803; G0378; J0282; J0330; J0610; J1450; J1650; J1720; J1940; J2185; J2250; J2270; J2370; J2405; J2430; J2543; J2704; J2916; J2997; J3010; J3370; J3475; J3480; J3490; J7030; J7040; J7050; J7060; J7070; Q9967